=== PATIENT | female | born 1965 | race Caucasian/White ===

== ENCOUNTER 2021-01-30 14:11 | Outpatient (CLI) | payer MEDICARE, SELFPAY ==
--- NOTE | ~2021-01-30 | MM_ITS ---
EXAMINATION: MM screening sharon BI w maxime HISTORY: Screening TECHNIQUE: Craniocaudal and mediolateral oblique 3-D tomosynthesis images were obtained and synthetic 2-D images were generated. CAD analysis was submitted and interpreted. COMPARISON: No prior mammogram is available for comparison at this institution. BREAST PARENCHYMAL COMPOSITION: There are scattered areas of fibroglandular density. FINDINGS: There is no evidence of suspicious mass, calcification, or architectural distortion to sugg est malignancy in either breast. There has been no suspicious interval change. IMPRESSION: 1. No mammographic evidence of malignancy. 2. Recommend routine screening mammography in one year. BI-RADS Category 1: Negative Reviewed, dictated and finalized at location A.
== END 2021-01-30 14:12 | disposition home or self-care (01) ==
LOC: ANHIMG 14:18
PROVIDERS: PCP Family Medicine; Visit Provider Family Medicine
DX: Z12.31 Encounter for screening mammogram for malignant neoplasm of breast (principal)
CPT/HCPCS: 77063; 77067

== ENCOUNTER 2021-06-14 10:24 | Outpatient (CLI) | payer MEDICARE, SELFPAY ==
--- NOTE | ~2021-06-14 | MMUS_ITS ---
EXAMINATION: MM diagnostic sharon LT w maxime, US breast LT limited HISTORY: Palpable left breast abnormality TECHNIQUE: Additional 3-D tomosynthesis images of the left breast were performed and synthetic 2-D im ages were generated. CAD analysis was submitted and interpreted. High resolution Limited left breast ultrasound was performed. COMPARISON: 01/30/2021 BREAST PARENCHYMAL COMPOSITION: Breast composed of scattered areas of fibroglandular density. FINDINGS: MAMMOGRAPHIC FINDINGS: There are no suspicious masses, calcifications or architectural distortion in the left breast to sugg est malignancy. ULTRASOUND: Limited left breast ultrasound: Normal heterogeneous echotexture without focal solid or cystic mass. IMPRESSION: 1. No evidence for malignancy in the left breast. 2. Routine yearly screening mammogram and regular clinical breast examination are recommended. BI-RADS Category 1: Negative Reviewed, dictated and finalized at location A. IMPRESSION: 1. No evidence for malignancy in the left breast. 2. Routine yearly screening mammogram and regular clinical breast examination a re recommended. BI-RADS Category 1: Negative
--- NOTE | ~2021-06-14 | CT_ITS ---
EXAMINATION: CT lung screening DATE: 06/14/2021 10:16 INDICATION: Personal history of tobacco dependence, prior smoker with 30 pack year history TECHNIQUE: Computed tomography (CT) of the chest was performed without intravenous contrast. The dose -length product (DLP) was 126.89 mGy-cm. Automated exposure control and iterative reconstruction tech [place] were employed. COMPARISON: None FINDINGS: There is mild emphysema. Calcified pulmonary nodules are consistent with old granulomatous disease. No suspicious pulmonary nodules are identified. Fissural lymph nodes are noted. The lungs ar e free of acute opacities. There is no pleural effusion or pneumothorax. No pathologically enlarged t horacic lymph nodes are identified. The heart size is normal. There is moderate thoracic spondylosis. IMPRESSION: 1. Lung-RADS category 1: Negative. Continue annual screening with noncontrast low-dose chest CT in 12 months. Reviewed, dictated and finalized at location A. IMPRESSION: 1. Lung-RADS category 1: Negative. Continue annual screening with noncontrast l ow-dose chest CT in 12 months.
== END 2021-06-14 10:25 | disposition home or self-care (01) ==
LOC: ANHIMG 10:24
PROVIDERS: PCP Family Medicine; Visit Provider Family Medicine
DX: Z12.2 Encounter for screening for malignant neoplasm of respiratory organs (principal); Z87.891 Personal history of nicotine dependence; N64.4 Mastodynia
CPT/HCPCS: 71271; 76642; 77061; 77065; G0279

== ENCOUNTER 2021-08-15 15:50 | Outpatient (CLI) | payer MEDICARE, SELFPAY ==
--- NOTE | ~2021-08-15 | US_ITS ---
EXAMINATION: US thyroid DATE: 08/15/2021 16:20 INDICATION: Nontoxic thyroid nodule. TECHNIQUE: Multiple ultrasound images of the thyroid were obtained. COMPARISON: Ultrasound 03/20/2017 FINDINGS: The right thyroid lobe measures 4.8 x 1.8 x 1.6 cm. The left thyroid lobe measures 4.3 x 1.5 x 1.6 c m. In the right thyroid lobe, there is an 11 mm solid, hypoechoic, [id number] nodule with ill-d efined margin without echogenic foci (TI-RADS TR4). The thyroid demonstrates chronic heterogeneous ec hogenicity and increased vascularity, consistent with thyroiditis. IMPRESSION: 1. Chronic thyroiditis. 2. Stable thyroid nodule. 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 Reviewed, dictated and finalized at location A. CH SUPERVISOR IMPRESSION: 1. Chronic thyroiditis. 2. Stable thyroid nodule. Biopsy on 04/03/2017 was consistent with granulomatous (subacute) versus Noemi thyroiditis.
== END 2021-08-15 15:51 | disposition home or self-care (01) ==
LOC: ANHIMG 15:54
PROVIDERS: PCP Family Medicine; Visit Provider Internal Medicine Endocrinology, Diabetes & Metabolism
DX: E04.1 Nontoxic single thyroid nodule (principal); E06.5 Other chronic thyroiditis
CPT/HCPCS: 76536

== ENCOUNTER 2022-12-17 14:11 | Outpatient (CLI) | payer MEDICARE, SELFPAY ==
--- NOTE | ~2022-12-17 | CT_ITS ---
CT Scan of the Chest without Contrast: Clinical Indication: Lung cancer screening, personal history of nicotine dependence Technique: Contiguous sections were acquired throughout the chest without intravenous contrast. Dose reduction technique was used on this scan by utilizing automated exposure control and iterative recon struction technique. The dose-length product (DLP) was 166.64 mGy-cm. COMPARISON: 06/14/2021 Findings: There is no evidence of any significant mediastinal, hilar or axillary lymphadenopathy. The mediastin al soft tissues appear normal. There is no evidence of pleural or pericardial effusion. Stable 3 mm nodule along the left fissure noted (axial image 61). No other pulmonary nodule seen. Images through the upper abdomen reveal no abnormalities. Impression: Lung-RADS 2: Benign appearance. 12 month follow-up screening CT advised. Reviewed, dictated and finalized at [facility]. Impression: Lung-RADS 2: Benign appearance. 12 month follow-up screening CT advised.
--- NOTE | 2022-12-18 13:27 | WPDPFTINT ---
PFT Procedure Performed PFT Procedure Performed Spirometry with Pre/Post Bronchodilator Plethysmography (Lung Vol) Diffusing Cap (DLCO) Flow Vol Loop PFT Interpretation This is a pulmonary function test with pre and post-bronchodilator spirometry, plethysmography and diffusing capacity. The test was performed and results interpreted in accordance with the 2019 and 2005 ATS/ERS Task Force guidelines respectively using the Global Lung Function Initiative-2012 reference equations. Patient demonstrated good effort and cooperation. Reproducibility criteria were met. The quality of the pre bronchodilator spirometry maneuver was Grade A and post bronchodilator spirometry maneuver was Grade A. Findings: Spirometry: The contour the inspiratory and expiratory flow tracing are normal. The pre bronchodilator FVC is 3.77 L, 107% predicted. The pre bronchodilator FEV1 is 2.74 L, 99% predicted. The pre bronchodilator FEV1: FVC ratio 73%. The post bronchodilator FVC is 3.87 L, representing a 3% increase. The post bronchodilator FEV1 is 2.89 L, representing a 6% increase. The post bronchodilator FEV1: FVC ratio 75%. Plethysmography: The total lung capacity is 5.44 L, 99% predicted. The functional residual capacity is 2.33 L, 75% predicted. The residual volume is 1.66 L, 79% predicted. Diffusion capacity: The diffusing capacity unadjusted for hemoglobin and carboxyhemoglobin is 19.6, 85% predicted. The diffusing capacity adjusted for alveolar volume is 3.71, 86% predicted. Impression: The spirometry is normal without evidence of an obstructive abnormality. There is no significant improvement after inhaling a single dose of albuterol. The lung volumes are normal. The diffusing capacity is normal. There are no prior studies for comparison
== END 2022-12-17 14:12 | disposition home or self-care (01) ==
LOC: ANHPFT 14:12
PROVIDERS: PCP Family Medicine; Visit Provider Family Medicine
DX: Z12.2 Encounter for screening for malignant neoplasm of respiratory organs (principal); Z87.891 Personal history of nicotine dependence
CPT/HCPCS: 71271; 94060; 94726; 94729

== ENCOUNTER → 2023-05-11 11:48 | Outpatient (CLI) | payer MEDICARE, SELFPAY ==
--- NOTE | ~2023-05-11 | XR_ITS ---
EXAMINATION: XR hip RT 2V w AP pelvis DATE: 05/11/2023 12:05 INDICATION: Nontraumatic right hip pain and right-sided sciatica TECHNIQUE: Anteroposterior view of the pelvis and anteroposterior and frog-leg lateral views of the r ight hip were obtained. COMPARISON: None. FINDINGS: Alignment is normal. No fracture or suspected avascular necrosis. Mild osteoarthritis at the bilatera l hip and left sacroiliac joints. Soft tissues are unremarkable. IMPRESSION: 1. 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 Reviewed, dictated and finalized at location A.
--- NOTE | ~2023-05-11 | XR_ITS ---
EXAMINATION: XR lumbar spine 2-3V DATE: 05/11/2023 12:05 INDICATION: Low back pain TECHNIQUE: Anteroposterior and lateral views of the lumbar spine, and cone-down lateral view of the l umbosacral junction were obtained. COMPARISON: None. FINDINGS: Bone alignment is normal. There is no fracture. There is moderate loss of intervertebral di sc space height at L5-S1. There is moderate facet joint osteoarthritis of the mid and lower lumbar sp ine. The vertebral body heights are maintained. Small degenerative osteophytes project from the anter ior endplates of multiple vertebral bodies. Calcified atherosclerosis is noted. IMPRESSION: 1. Mild/moderate lumbar spondylosis without acute findings. Reviewed, dictated and finalized at location B.
== END ==
PROVIDERS: PCP Physician Assistant; Visit Provider Physician Assistant
DX: M47.896 Other spondylosis, lumbar region (principal); M16.0 Bilateral primary osteoarthritis of hip; M53.3 Sacrococcygeal disorders, not elsewhere classified
CPT/HCPCS: 72100; 73502

== ENCOUNTER 2023-06-02 17:03 | Outpatient (CLI) | payer MEDICARE, SELFPAY ==
--- NOTE | ~2023-06-02 | MR_ITS ---
EXAMINATION: MR lumbar spine wo con DATE: 06/02/2023 17:38 INDICATION: Lumbar radiculopathy TECHNIQUE: Magnetic resonance imaging (MRI) of the lumbar spine was performed without intravenous con trast. Sequences included sagittal T2-weighted FSE, sagittal T2-weighted FS FSE, sagittal T1-weighted FSE, and axial T2-weighted FSE. COMPARISON: Chest CT dated 12/17/2022 and lumbar spine radiographs dated 05/11/2023 FINDINGS: Transitional thoracolumbar and lumbosacral segments. For purposes of this dictation the thoracolumbar segment will be designated L1 with bilateral hypoplastic riblets. There are 12 more cephalad paired rib-bearing thoracic segments evident on prior CT. There are 4 more caudal nonrib-bearing lumbar segm ents L2-L5. S1 is sacralized bilaterally but with increased thickness of the S1-S2 disc space. Bone a lignment is normal. Vertebral body heights are normal. Normal marrow signal. Disc heights are normal . There is an annular fissure and heterogeneous increased signal in the anterior L5-S1 disc. The conu s medullaris terminates at L1-L2. There is normal signal in the caudal spinal cord. Paravertebral sof t tissues are unremarkable. The following disc levels are specifically discussed: T12-L1: The disc does not extend beyond the endplate margin. There is mild left and moderate right fa cet joint osteoarthritis. There is minimal right neural foraminal stenosis. There is no central canal stenosis. L1-L2: The disc does not extend beyond the endplate margin. There is mild bilateral facet joint osteo arthritis. There is no neural foraminal stenosis. There is no central canal stenosis. L2-L3: Mild bilateral foraminal zone disc protrusions. There is mild right and mild to moderate left facet joint osteoarthritis. There is no neural foraminal stenosis. There is no central canal stenosis . L3-L4: The disc does not extend beyond the endplate margin. There is hypertrophy of the ligamentum fl avum. There is moderate bilateral facet joint osteoarthritis. There is minimal bilateral neural fora silvia stenosis. There is minimal central canal stenosis. L4-L5: Disc is mildly bulging. There is hypertrophy of the ligamentum flavum. There is moderate bilat eral facet joint osteoarthritis. There is mild bilateral neural foraminal stenosis. There is mild dinah tral canal stenosis. L5-S1: Disc is mildly bulging with left foraminal zone predominance and superimposed central annular fissure. There is hypertrophy of the ligamentum flavum. There is moderate bilateral facet joint oste oarthritis. There is mild bilateral neural foraminal stenosis. There is minimal central canal stenosi s. IMPRESSION: 1. Mild lumbar spondylosis. Reviewed, dictated and finalized at location A. IMPRESSION: 1. Mild lumbar spondylosis.
== END 2023-06-02 17:04 | disposition home or self-care (01) ==
PROVIDERS: PCP Family Medicine; Visit Provider Physician Assistant
DX: M47.26 Other spondylosis with radiculopathy, lumbar region (principal)
CPT/HCPCS: 72148

== ENCOUNTER 2023-07-03 07:39 | Outpatient (CLI) | payer MEDICARE, SELFPAY ==
--- NOTE | 2023-07-03 07:50 | ECHO_ITS ---
Patient Info Name: Berenice Choi Age: 58 years : 1965 Gender: Female Ht: 67 in Wt: 220 lbs BSA: 2.21 m2 HR: 77 bpm BP: 163 / 99 mmHg Technical Quality: Good Exam Date: 07/03/2023 8:02 AM Exam Location: [facility] Patient Status: Outpatient Admit Date: 07/03/2023 Staff Ordering Physician: Naina Jean-Baptiste MD [employer] Teacher: Ericka Harley RDCS Attending Provider: Naina Jean-Baptiste MD Referring Physician: Estiven GARCIA; Exam Type: CA echo doppler color flow Study Info Indications R07.89 - Other chest pain Complete two-dimensional, color flow and Doppler transthoracic echocardiogram is performed. Summary 1. Complete two-dimensional, color flow and Doppler transthoracic echocardiogram is performed. 2. Left ventricular chamber dimension is normal. 3. Left ventricular systolic function is normal, estimated at 60-65%. 4. The left ventricular diastolic function is grade I diastolic dysfunction. 5. E/e' 11 is mildly elevated. 6. No pulmonary hypertension, estimated pulmonary arterial systolic pressure is 22 mmHg. Left Ventricle E/e' 11 is mildly elevated. Left ventricular chamber dimension is normal. Left ventricular systolic function is normal, estimated at 60-65%. The left ventricular diastolic function is grade I diastolic dysfunction. Right Ventricle Right ventricular chamber dimension is normal. Right ventricular systolic function is normal. Left Atria Left atrial chamber dimension is normal. Right Atria Right atrial chamber dimension is normal. Aortic Valve The aortic valve is trileaflet. There is no aortic valve stenosis. There is no aortic valve regurgitation. Pulmonic Valve There is no pulmonic regurgitation. Mitral Valve There is no mitral valve stenosis. There is no mitral valve regurgitation. Tricuspid Valve There is no tricuspid valve regurgitation. No pulmonary hypertension, estimated pulmonary arterial systolic pressure is 22 mmHg. Pericardium/Pleural There is no pericardial effusion. Inferior Vena Cava Normal inferior vena cava with >50% collapse upon inspiration consistent with normal right atrial pressure, 5 mmHg. Aorta The aortic root size at the sinus of Valsalva is normal. Left Ventricular Outflow Tract Name Value Normal LVOT 2D LVOT Diameter 2.0 cm LVOT Doppler LVOT Peak Gradient 6 mmHg LVOT Mean Gradient 3 mmHg LVOT VTI 24 cm LVOT VTI/AV VTI Ratio 1.0 LVOT Stroke Volume 76 ml LVOT CO 4.8 l/min LVOT CI 2.2 l/min/m2 Pulmonic Valve Name Value Normal RVOT Doppler RVOT Peak Gradient 3 mmHg PV Doppler PV Peak Gradient 4 mmHg Mitral Valve
--- NOTE | 2023-07-03 07:51 | EST_ITS ---
Patient Info Name: Berenice Choi Age: 58 years : 1965 Gender: Female Ht: 67 in Wt: 220 lbs BSA: 2.21 m2 Exam Date: 07/03/2023 8:55 AM Exam Location: [facility] Patient Status: Outpatient Admit Date: 07/03/2023 Staff Ordering Physician: Naina Jean-Baptiste MD Attending Provider: Naina Jean-Baptiste MD Exercise Technologist: Melisa Billings CT Exercise Physician: Milo Flynn DO Exam Type: CA stress test treadmill Study Info Indications R07.89 - Other chest pain A treadmill exercise stress test was performed. Summary 1. 1. Negative Juan exercise stress test for ischemic ST changes by ECG criteria. 2. 2. Reduced functional capacity, achieving 7 METs of workload. 3. 3. Baseline hypertension. 4. 4. Appropriate HR response to exercise. 5. 5. Appropriate HR recovery at 1 minute post exercise. 6. 6. No imaging with stress testing. 7. 7. Patient informed of the above results. Protocol: Juan Stress ECG Details Stage: REST Duration (min): 1 min : 17 sec Speed (mph): 0.0 Grade (%): 0 HR (bpm): 64 SBP (mmHg): 143 DBP (mmHg): 87 METS: --- Stage: REST Duration (min): 5 min : 32 sec Speed (mph): 0.0 Grade (%): 0 HR (bpm): 61 SBP (mmHg): 143 DBP (mmHg): 87 METS: --- Stage: STAGE 1 Duration (min): 1 min : 0 sec Speed (mph): 1.7 Grade (%): 10 HR (bpm): 102 SBP (mmHg): 143 DBP (mmHg): 87 METS: --- Stage: STAGE 1 Duration (min): 2 min : 0 sec Speed (mph): 1.7 Grade (%): 10 HR (bpm): 116 SBP (mmHg): 143 DBP (mmHg): 87 METS: --- Stage: STAGE 1 Duration (min): 3 min : 0 sec Speed (mph): 1.7 Grade (%): 10 HR (bpm): 122 SBP (mmHg): 188 DBP (mmHg): 82 METS: --- Stage: STAGE 2 Duration (min): 1 min : 0 sec Speed (mph): 2.5 Grade (%): 12 HR (bpm): 134 SBP (mmHg): 188 DBP (mmHg): 82 METS: --- Stage: STAGE 2 Duration (min): 2 min : 0 sec Speed (mph): 2.5 Grade (%): 12 HR (bpm): 141 SBP (mmHg): 188 DBP (mmHg): 82 METS: --- Stage: STAGE 2 Duration (min): 2 min : 0 sec Speed (mph): 2.5 Grade (%): 12 HR (bpm): 141 SBP (mmHg): 188 DBP (mmHg): 82 METS: --- Stage: RECOVERY Duration (min): 0 min : 59 sec Speed (mph): 0.0 Grade (%): 0 HR (bpm): 109 SBP (mmHg): 206 DBP (mmHg): 83 METS: --- Stage: RECOVERY Duration (min): 1 min : 59 sec Speed (mph): 0.0 Grade (%): 0 HR (bpm): 84 SBP (mmHg): 206 DBP (mmHg): 83 METS: --- Stage: RECOVERY Duration (min): 2 min : 59 sec Speed (mph): 0.0 Grade (%): 0 HR (bpm): 82 SBP (mmHg): 206 DBP (mmHg): 83 METS: --- Stage: RECOVERY Duration (min): 3 min : 11 sec Speed (mph): 0.0 Grade (%): 0 HR (bpm): 81 SBP (mmHg): 181 DBP (mmHg): 80 METS: --- Rest HR: 61 bpm Peak HR: 141 bpm Rest Sys BP: 143 mmHg Peak Sys BP: 206 mmHg Max Pred HR: 160 bpm % Max Pred HR: 88 % Target HR: 136 bpm Max RPP: 29,046 bpm*mmHg Holcomb Score: -5 Term
== END 2023-07-03 07:40 | disposition home or self-care (01) ==
PROVIDERS: PCP Family Medicine; Visit Provider Family Medicine
DX: R07.89 Other chest pain (principal); R06.02 Shortness of breath; E78.2 Mixed hyperlipidemia; Z87.891 Personal history of nicotine dependence; E05.20 Thyrotoxicosis with toxic multinodular goiter without thyrotoxic crisis or storm; I10 Essential (primary) hypertension
CPT/HCPCS: 93017; 93306

== ENCOUNTER → 2023-08-17 11:07 | Outpatient (CLI) | payer MEDICARE, SELFPAY ==
--- NOTE | ~2023-08-17 | XR_ITS ---
EXAMINATION: XR chest 2V 08/17/2023 11:14 INDICATION: Shortness of breath and wheezing PROCEDURE: 2 view chest COMPARISON: No prior studies for comparison. FINDINGS: The lungs are clear. The cardiomediastinal silhouette is within normal limits. There are no pleural effusions. There is no pneumothorax suspected. IMPRESSION: 1: NO ACUTE CARDIOPULMONARY DISEASE. Reviewed, dictated and finalized at location B. R [employer]
== END ==
PROVIDERS: PCP Family Medicine; Visit Provider Emergency Medicine
DX: R06.02 Shortness of breath (principal); R06.2 Wheezing
CPT/HCPCS: 71046

== ENCOUNTER 2024-02-16 10:51 | Outpatient (CLI) | payer MEDICARE, SELFPAY | END 2024-02-16 10:52 | disposition home or self-care (01) | LOC: ANHAUDIO 10:51 | PROVIDERS: PCP Family Medicine; Visit Provider Family Medicine | DX: H90.3 Sensorineural hearing loss, bilateral (principal) | CPT/HCPCS: 92557; 92567 ==

== ENCOUNTER 2024-11-01 10:42 | Outpatient (CLI) | payer MEDICARE, SELFPAY ==
--- NOTE | ~2024-11-01 | CT_ITS ---
CT Scan of the Chest without Contrast: Clinical Indication: Lung cancer screening, nicotine dependence Technique: Contiguous sections were acquired throughout the chest without intravenous contrast. Dose reduction technique was used on this scan by utilizing automated exposure control and iterative recon struction technique. The dose-length product (DLP) was 148.20 mGy-cm. COMPARISON: 12/17/2022 Findings: There is no evidence of any significant mediastinal, hilar or axillary lymphadenopathy. The mediastin al soft tissues appear normal. There is no evidence of pleural or pericardial effusion. Stable 3 mm nodule along the left fissure. No pulmonary nodules or infiltrates are noted. Images through the upper abdomen reveal no abnormalities. Stable degenerative changes in the thoracic spine. Impression: Lung RADS 2: Benign appearance. 12 month follow-up screening CT advised. Reviewed, dictated and finalized at [facility]. REL RENTAL CLERK Impression: Lung RADS 2: Benign appearance. 12 month follow-up screening CT advised.
--- OUTSIDE RECORDS SUMMARY | 2024-11-01 11:19 | XMS_ITS | Clinical Summary ---
Author Organization [facility] Address [address] [place] [address] Care Team Providers Care Attending Pathologist Name Role Phone Naina Jean-Baptiste MD Primary Care Provider + Allergies Active Allergy Reactions Criticality Noted Date Comments Omeprazole Headache Low 10/08/2017 Medications omega 4-lgo-fob-fish oil 300-1,000 mg capsule TAKE 1 CAPSULE TWICE DAILY. 8 Active lamoTRIgine (LaMICtal) 100 mg tablet 8 Active buPROPion SR (WELLBUTRIN SR) 200 mg 12 hr tablet 2 times daily. 8 Active cholecalciferol (VITAMIN D-3) 5,000 unit capsule Take 1 capsule (5,000 Units total) by mouth daily. [address] (CYMBALTA) 60 mg capsule 9 Active thyroid ([place] Thyroid) 90 mg tablet 90 mg daily Active liothyronine (CYTOMEL) 25 mcg tablet 2 Active cyclobenzaprine (FLEXERIL) 10 mg tablet Take 1 tablet (10 mg total) by mouth 3 (three) times a day as needed for muscle spasms 3 Active liothyronine (CYTOMEL) 5 mcg tablet 2 Active thyroid ([place] Thyroid) 30 mg tablet 3 Active dextromethorpha n-guaifenesin 60-1,200 mg tablet extended release 12 hr Take by mouth Ac tive ibuprofen 200 mg tab/cap Take 2 tablet/capsule (400 mg total) by mouth every 6 (six) hours as needed for pain, fever or headaches Active cefdinir (OMNICEF) 300 mg capsule 3 Active Active Problems Problem Noted Date Diagnosed Date Keratoconjunctivitis sicca d ue to decreased tear production, bilateral 06/09/2019 Assessment & Plan (09/07/2024 1:35 PM HOSPITAL CHIEF FINANCIAL OFFICER): Symptoms stable on lubricating drops prn. Assessment & Plan (09/02/2023 11:54 AM HOSPITAL CHIEF FINANCIAL OFFICER): Signs and symptoms are greatly improved. Using Ats daily prn. CPM. Assessment & Plan (08/27/2022 1:09 PM HOSPITAL CHIEF FINANCIAL OFFICER): Continue ATs prn. Assessment & Plan (08/21/2021 4:20 PM HOSPITAL CHIEF FINANCIAL OFFICER): Well controlled with OTC ATs. F/u annually. Assessment & Plan (06/13/2020 1:45 PM CDT): Well controlled with OTC lubricating drops. CPM. Call with any worsening symptoms. Assessment & Plan (06/09/2019 11:26 AM CDT): Hx of hashimotos and graves disease. Has dry mouth and other symptoms consistent with sjogrens. Corneal staining meets criterion for sjogrens. Schimers <5mm OD, >5mm OS. Discussed restasis vs punctal plugs. Pt elects restasis at present. Start restasis, 1gtt, OU bid. Start Lotemax SM bid until bottle runs out when starting restasis. Continue PF ATs PRN. RTC x 4 months for symptoms/ant seg check. Consider punctal plugs if no improvement. Eye pain, right 12/23/2018 Assessment & Plan (12/23/2018 10:12 AM CDT): Pt only notices in the spring, comes and goes. Likely deferred sinus pressure pain. Start Flonase or Nasocort. Call with any persistence. Keep f/u in April for DFE. Dry eyes 05/28/2018 Assessment & Plan (12/23/2018 10:12 AM CDT): ATs PRN Assessment & Plan (05/28/2018 11:41 AM CDT): ATs prn Nuclear sclerotic cataract of both eyes 05/28/20 18 Assessment & Plan (09/07/2024 1:35 PM HOSPITAL CHIEF FINANCIAL OFFICER): Mild. Update Srx. F/u annually. Assessment & Plan (09/02/2023 11:53 AM HOSPITAL CHIEF FINANCIAL OFFICER): Stable on exam today. Recommended better lighting for reading. F/u annually. Assessment & Plan (08/27/2022 1:09 PM HOSPITAL CHIEF FINANCIAL OFFICER): Stable. update SRx. F/u annually Assessment & Plan (08/21/2021 4:20 PM HOSPITAL CHIEF FINANCIAL OFFICER): Surgery not indicated. Update SRx. F/u annually. Assessment & Plan (06/13/2020 1:44 PM CDT): Not yet vis sig. Surgery not yet indicated. F/u in 1-2 years. Assessment & Plan (06/09/2019 11:25 AM CDT): Stable. Observe. Assessment & Plan (12/23/2018 10:12 AM CDT): New SRx. Recommended optical recheck seg ht of new glasses. Assessment & Plan (05/28/2018 11:41 AM CDT): Not vis sig. rec observation at present Fibromyalgia syndrome 04/05/2018 Assessment & Plan (04/05/2018 5:42 PM CDT): This would be a new diagnosis but her mother has fibromyalgia. Her exam is benign and symptoms are diffuse. Her bipolar disorder is overall well controlled and longstanding without these symptoms being associated previously. She gave me permission to contact her psychiatrist, Dr. Recinos, [facility] [phone]. If no contraindication, I will trial Lyrica with Berenice and f/u in 1 m. We could also consider substituting SNRI for lexapro in future. Groin pain, right 04/05/2018 Assessment & Plan (04/05/2018 5:44 PM CDT): Exam benign; dif dx includes OA, strain, bursitis, fibromyalgia, gait abnormality. CTM Leg length discrepancy 02/05/2018 Gastroesophageal reflux disease 10/08/2017 Anxiety 10/08/2017 Bipolar I disorder, most recent episode depresse d ([facility]) 10/08/2017 Hyperlipidemia 10/08/2017 Hypertension 10/08/2017 Hyperthyroidism 10/08/2017 Assessment & Plan (07/16/2018 3:56 PM CDT): Clinical thyroid symptoms slightly high, with brisk reflex relaxation. However, poor tolerance to antithyroid medication. Need to check her current status Assessment & Plan (05/03/2018 9:54 AM CDT): As above, Graves disease. We will see how she does with PTU and a more consistent regimen. Assessment & Plan (04/05/2018 5:42 PM CDT): Labs stable. Seeing Endocrine. Obesity with body mass index 30 or greater 10/08 Seasonal allergic rhinitis 10/08/2017 Menopausal symptom 10/08/2017 Graves disease 05/04/2017 Assessment & Plan (12/23/2018 10:13 AM CDT): No ophthalmic manifestations at present. Observe. Assessment & Plan (07/16/2018 11:10 AM CDT): Very high antibody levels. Some of her constitutional symptoms could be related to and chin/antibody immune reaction and may respond to anti inflammatory management Assessment & Plan (05/28/2018 11:42 AM CDT): No ophthalmic manifestations. Recommend continued care with PCP. Assessment & Plan (05/03/2018 9:53 AM CDT): Very symptomatic, but she may be having untoward side effects of methimazole so we can changed to PTU to see if this works better for her. We need to monitor both free T3 and free T4 levels until we reach a clinical balance Carpal tunnel syndrome 12/11/2016 Overview (02/20/2017): Right carpal tunnel syndrome Disorder of rotator cuff 06/12/2016 Overview (01/01/2017): Tear of right rotator cuff, unspecified tear extent Inflammation of rotator cuff tendon 06/12/2016 Overview (01/01/2017): Tendinitis of left rotator cuff [place] or callus 08/20/2014 Overview (01/01/2017): Corns and callus Resolved Problems Problem Noted Date Diagnosed Date Resolved Date Meibomian gland dysfunction (MGD) of both eyes 05/04/2017 05/28/2018 Encounters Date Type Department Care Team Description 09/07/2024 1:00 PM HOSPITAL CHIEF FINANCIAL OFFICER Office Visit [facility] [address] [place] [address] Lio Blount, OD Nuclear sclerotic cataract of both eyes (Primary Dx); Keratoconjunctivitis sicca due to decreased tear production, bilateral from Last 3 Months Surgical History Surgery Date Site/Laterality Comments VAGINAL HYSTERECTOMY Hysterectomy, vaginal HYSTERECTOMY Total Hysterectomy - [facility] 2004 (Added by TW Conv) SHOULDER SURGERY Shoulder Surgery Right - [facility] 2016 (Added by TW Conv) SHOULDER SURGERY Shoulder Surgery - (Added by TW Conv) HYSTERECTOMY Hysterectomy - endometrtiosis - no BSO (Added by TW Conv) ROTATOR CUFF REPAIR Rotator Cuff Repair - right (Added by TW Conv) CA BIOPSY THYROID PERCUTANEO US CORE NEEDLE Biopsy Thyroid Using Percutaneous Core Needle - U/S guided - 12 m nodule R lobe nodule - Noemi thyroiditis (Added by TW Conv) Medical History Medical History Date Comments Osteoarthritis Osteoarthritis Other specified disorders of eyelid Meibomian gland dysfunction (MGD) of both eyes - (Added by TW Conv) Gastro-esophageal reflux dis ease without esophagitis Acid reflux - (Added by TW C onv) Obesity Obesity (BMI 30- 39.9) - (Added by TW Conv) Female climacteric state Symptom atic menopausal or female climacteric states - (Added by TW Conv) Personal history of other di seases of the female genital tract History of endometriosis - ( Added by TW Conv) Dislocation of acromioclavicular joint Acromioclavicular separation - Left (Added by TW Conv) Injury of tendon of rotator cuff Rotator cuff injury - Right (Added by TW Conv) Personal history of other di seases of the digestive system History of hiatal hernia - ( Added by TW Conv) Personal history of other di seases of the respiratory system History of asthma - (Added b y TW Conv) History of recurrent pneumonia H istory of pneumonia - (Added by TW Conv) Personal history of other me ntal and behavioral disorders History of bipolar disorder - (Added by TW Conv) Fibromyalgia Family History Medical History Relation Name Comments Breast cancer Cousin Diabetes Father Family history of diabetes mellitus - (Added by TW Conv) Diabetes type II Father Type 2 Diab etes Mellitus - (Added by TW Conv) Hyperlipidemia Father High choleste rol - (Added by TW Conv) Hypertension Father Family history of hypertension - (Added by TW Conv)/Hypertension - (Added by TW Conv) Obesity Father Family history of obesity - (Added by TW Conv) Diabetes type II Maternal Grandfather Typ e 2 Diabetes Mellitus - Relation: Grandfather (Added by TW Conv) Diabetes type II Maternal Grandmother Sheba betes mellitus type 2; Heart disease Maternal Grandmother Cardio vascular disease; Heart attack Mother Family history of myocardial infarction - (Added by TW Conv) Heart disease Mother Cardiovascular disease; Hyperlipidemia Mother High choleste rol - (Added by TW Conv) Cancer Other 1 Family history of malignant neoplasm - Relation: Grandparent (Added by TW Conv) Diabetes Other 2 Family history of diabetes mellitus - Relation: Grandparent (Added by TW Conv) Hyperlipidemia Other 3 High choleste rol - Relation: Grandparent (Added by TW Conv) Heart attack Other 4 Family history of myocardial infarction - Relation: Grandparent (Added by TW Conv) Heart disease Other 5 Heart Disease - Relation: Grandmother (Added by TW Conv) Thyroid disease Other 6 Family histo ry of thyroid disease - MGM - hemithyroidectomy - ? disorder (Added by TW Conv) Glaucoma Neg Hx Macular degeneration Neg Hx Relation Name Status Comments Cousin Father Maternal Grandfather Maternal Grandmother Mother Other 1 Other 2 Other 3 Other 4 Other 5 Other 6 Social History Tobacco Use Types Packs/Day Years Used Date Smoking Tobacco: Former Cigarettes 1.3 20 1 988 - 2007 Smokeless Tobacco: Former Tobacco Cessation:Counseling Given: Not Answered Alcohol Use Standard Drinks/Week Comments No 0 (1 standard drink = 0.6 oz pur e alcohol) Comments No Sex and Gender Information Value Date Recorded Sex Assigned at Not on file Legal Sex Female 3:29 AM HOSPITAL CHIEF FINANCIAL OFFICER Gender Identity Not on file Sexual Orientation Not on file Obstetrics History Para Term AB IAB SAB Ectopic Multiple Livin g Live Births 0 0 0 0 0 0 0 0 0 0 0 Last Filed Vital Signs Vital Sign Reading Time Taken Comments Blood Pressure 138/96 08/11/2023 10:40 AM HOSPITAL CHIEF FINANCIAL OFFICER Pulse 102 08/11/2023 10:40 AM HOSPITAL CHIEF FINANCIAL OFFICER Temperature 37.2 ??C (99 ??F) 08/11/2023 10:40 AM HOSPITAL CHIEF FINANCIAL OFFICER Respiratory Rate 20 08/23/2019 6:06 PM HOSPITAL CHIEF FINANCIAL OFFICER Oxygen Saturation 97% 08/11/2023 10:40 AM HOSPITAL CHIEF FINANCIAL OFFICER Inhaled Oxygen Concentration - - Weight 101.2 kg (223 lb) 08/11/2023 10:40 AM HOSPITAL CHIEF FINANCIAL OFFICER verbal Height 170.2 cm (5' 7 ) 08/11/2023 10:40 AM HOSPITAL CHIEF FINANCIAL OFFICER verbal Body Mass Index 34.93 08/11/2023 10:40 AM HOSPITAL CHIEF FINANCIAL OFFICER Plan of Treatment Health Maintenance Due Date Last Done Comments Colon Cancer Screening-Colonoscopy 1963 Depression Screening 1963 Hepatitis C Screening 1963 DTaP/Tdap/Td Vaccine (1 - Tdap) 1974 Hepatitis B Screening 1981 Regular Well Visit/Exam 18-64 1981 Zoster Vaccine (1 of 2) 2013 Breast Cancer Screening-Mammogram 05/27/2023 05/27/2022, 08/31/2019, 07/31/2018, Additional history exists Covid-19 Vaccine ( season) 2024 12/20/2020, 11/29/2020 Influenza Vaccine (#1) 2024 Pneumococcal vaccine <65 Aged Out No longer eligible based on patient's age to complete this topic Procedures Procedure Name Priority Date/Time Associated Diagnosis Comments SCREENING MAMMOGRAM BILATERAL W STEPHANI Schedule Routine, Read Routine (OP Routine) 05/27/2022 9:57 AM CDT Screening mammogram, encounter for from Last 3 Months or Most Recently Relevant to Health Maintenance Results * Screening Mammogram Bilateral W Stephani (05/27/2022 9:57 AM CDT) Anatomical Region Laterality Modality Breast Bilateral Mammography 05/27/2022 1:48 PM CDT Impressions 05/27/2022 1:48 PM CDT There is no mammographic evidence of malignancy. A 1 year screening mammogram is recommended. BI-RADS: 1 - Negative. The patient has been or will be contacted. The patient will be entered into a reminder system with a target due date of 1 year for her next mammogram. Electronically signed by: Julito Quinonez M.D. Narrative 05/27/2022 1:48 PM CDT EXAMINATION: SCREENING MAMMOGRAM BILATERAL W STEPHANI ORDERING HEALTHCARE PROVIDER: SELF SCREENING MAMMOGRAM HISTORY: Routine screening mammography. COMPARISON: ??06/14/2021, 01/30/2021, 08/31/2019, 07/31/2018, 04/27/2017 TECHNIQUE: CC and MLO views of the bilateral breasts were obtained with digital technique using breast tomosynthesis with C view. Computer aided detection was utilized. FINDINGS: DENSITY: There are scattered fibroglandular elements in the bilateral breasts. BREASTS: There are no suspicious masses, suspicious calcifications, or other suspicious findings in either breast. There has been no suspicious interval change. us Self Screening Mammogram IMG MAMMO PROCEDURES Fi nal Result from Last 3 Months or Most Recently Relevant to Health [place] [address] [place] [id number] [employer] MEDICARE [employer] MEDICARE SOLUTIONS MEDICARE SOLUTIONS Care Teams Attending Pathologist Relationship Specialty Start Date End Date Naina Jean-Baptiste MD [facility] - General 01/22/21
--- OUTSIDE RECORDS SUMMARY | 2024-11-01 11:19 | XMS_ITS | Referral Summary ---
Author Organization [facility] Address [address] [place] [address] Care Team Providers Care Mathematical Engineering Technician Name Role Phone Naina Jean-Baptiste MD Primary Care Provider [phone] Source Comments [facility],non-owned Affiliates and Associated Physician Practices is amultiple site organization consisting of ambulatory clinics and hospital sitesin [place], [place], [place] and [place]. This disclosure is being madepursuant to the Care Everywhere program and may not contain all information available regarding this patient. Last updated 18.[facility] Encounters Date Type Department Care Team Description 09/07/2024 Travel 09/07/2024 8:45 AM CARRY IN WORKER Office Visit [facility] - Endocrinology [address] [place], [place] [address]Y [facility] [address] [place] [id number] Avril Kinsey MD Hypothyroidism, acquired (Primary Dx) from Last 3 Months Allergies No known active allergies Medications * Be aware that medications may not be up to date on this document. Alwaysverify current medications with the patient. Medication Sig Dispensed Refills Start Date End Date Status buPROPion SR 12hr (Wellbutrin SR) 200 MG tablet Active DULoxetine (Cymbalta) 60 MG capsule Active lamoTRIgine (LaMICtal) 100 MG tablet Active liothyronine (Cytomel) 25 MCG tablet 25mcg 3am, 11am 05/20/2023 Active liothyronine 5 MCG capsule 5mcg 4pm and 11pm 05/12/2022 Active [place]-3 Fatty Acids (FISH OIL PO) Active Magnesium Carbonate, Antacid, (MAGNESIUM CARBONATE PO) Active Cyanocobalamin (VITAMIN B-12 PO) Active VITAMIN D PO Active LORazepam (Ativan) 0.5 MG tablet Take 1 (one) tablet by mouth every 8 hours as needed for Anxiety Active propranolol (Inderal) 20 MG tablet Take 1 (one) tablet by mouth every 8 hours Active Active Problems Problem Noted Date Diagnosed Date Hypothyroidism, acquired 09/07/2024 Vitamin D deficiency 09/07/2024 Groin discomfort, right 07/13/2023 07/21/20 Degenerative disc disease, lumbar 05/20/2023 07/21/2023 Lumbar and sacral osteoarthritis 05/20/2023 07/21/2023 Sciatic leg pain 07/20/2021 07/21/2023 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 07/21/2023 Graves disease 10/20/2009 07/21/2023 Social History Tobacco Use Types Packs/Day Years Used Date Smoking Tobacco: Former Cigarettes Q uit: 2008 Smokeless Tobacco: Never Alcohol Use Standard Drinks/Week Comments Never 0 (1 standard drink = 0.6 oz pur e alcohol) Sex and Gender Information Value Date Recorded Sex Assigned at Female 05/26/2023 1:49 PM CDT Gender Identity Female 05/26/2023 1:49 PM CDT Sexual Orientation Not on file Last Filed Vital Signs Vital Sign Reading Time Taken Comments Blood Pressure 130/64 09/07/2024 8:58 AM CARRY IN WORKER Pulse 74 09/07/2024 8:58 AM CARRY IN WORKER Temperature - - Respiratory Rate - - Oxygen Saturation 98% 09/07/2024 8:58 AM CARRY IN WORKER Inhaled Oxygen Concentration - - Weight 102.2 kg (225 lb 3.2 oz) 09/07/2024 8:58 AM CARRY IN WORKER Height 170.2 cm (5' 7 ) 09/07/2024 8:58 AM CARRY IN WORKER Body Mass Index 35.27 09/07/2024 8:58 AM CARRY IN WORKER Plan of Treatment Not on file Care Teams Mathematical Engineering Technician Relationship Specialty Start Date End Date Naina Jean-Baptiste MD [address] [place] [address] PCP - General Family Medicine 05/26/23
--- OUTSIDE RECORDS SUMMARY | 2024-11-01 11:19 | XMS_ITS | Patient Health Summary ---
Author Organization [facility] Address [address] [place] [address] Care Team Providers Care Barrow Worker Helper Name Role Phone Naina Jean-Baptiste MD Primary Care Provider [phone] Note from [facility],non-owned Affiliates and Associated Physician Practices is amultiple site organization consisting of ambulatory clinics and hospital sitesin [place], [place], [place] and [place]. This disclosure is being madepursuant to the Care Everywhere program and may not contain all information available regarding this patient. Last updated 18.[facility] Allergies No known active allergies Medications * Be aware that medications may not be up to date on this document. Alwaysverify current medications with the patient. * buPROPion SR 12hr (Wellbutrin SR) 200 MG tablet * DULoxetine (Cymbalta) 60 MG capsule * lamoTRIgine (LaMICtal) 100 MG tablet * liothyronine (Cytomel) 25 MCG tablet(Started 05/20/2023) 25mcg 3am, 11am * liothyronine 5 MCG capsule(Started 05/12/2022) 5mcg 4pm and 11pm * [place]-3 Fatty Acids (FISH OIL PO) * Magnesium Carbonate, Antacid, (MAGNESIUM CARBONATE PO) * Cyanocobalamin (VITAMIN B-12 PO) * VITAMIN D PO * LORazepam (Ativan) 0.5 MG tablet Take 1 (one) tablet by mouth every 8 hours as needed for Anxiety * propranolol (Inderal) 20 MG tablet Take 1 (one) tablet by mouth every 8 hours Active Problems Problem Noted Date Diagnosed Date Hypothyroidism, acquired 09/07/2024 Vitamin D deficiency 09/07/2024 Groin discomfort, right 07/13/2023 07/21/20 Degenerative disc disease, lumbar 05/20/2023 07/21/2023 Lumbar and sacral osteoarthritis 05/20/2023 07/21/2023 Sciatic leg pain 07/20/2021 07/21/2023 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 07/21/2023 Graves disease 10/20/2009 07/21/2023 Social History Tobacco Use Types Packs/Day Years Used Date Smoking Tobacco: Former Cigarettes Q uit: 2009 Smokeless Tobacco: Never Alcohol Use Standard Drinks/Week Comments Never 0 (1 standard drink = 0.6 oz pur e alcohol) Sex and Gender Information Value Date Recorded Sex Assigned at Female 05/26/2023 1:49 PM CDT Gender Identity Female 05/26/2023 1:49 PM CDT Sexual Orientation Not on file Last Filed Vital Signs Vital Sign Reading Time Taken Comments Blood Pressure 130/64 09/07/2024 8:58 AM FIELD CONTACT TECHNICIAN Pulse 74 09/07/2024 8:58 AM FIELD CONTACT TECHNICIAN Temperature - - Respiratory Rate - - Oxygen Saturation 98% 09/07/2024 8:58 AM FIELD CONTACT TECHNICIAN Inhaled Oxygen Concentration - - Weight 102.2 kg (225 lb 3.2 oz) 09/07/2024 8:58 AM FIELD CONTACT TECHNICIAN Height 170.2 cm (5' 7 ) 09/07/2024 8:58 AM FIELD CONTACT TECHNICIAN Body Mass Index 35.27 09/07/2024 8:58 AM FIELD CONTACT TECHNICIAN Care Teams Barrow Worker Helper Relationship Specialty Start Date End Date Naina Jean-Baptiste MD [address] [place] [address] PCP - General Family Medicine 05/26/23
--- OUTSIDE RECORDS SUMMARY | 2024-11-01 11:19 | XMS_ITS | Referral Summary ---
Author Organization [facility] Address [address] [place] [address] Care Team Providers Care Director Of Strategic Marketing Name Role Phone Naina Jean-Baptiste MD Primary Care Provider + Encounters Date Type Department Care Team Description 09/07/2024 1:00 PM DIALS INSPECTOR Office Visit [facility] Ophthalmology [address] [place] [address] Lio Blount, [place] Nuclear sclerotic cataract of both eyes (Primary Dx); Keratoconjunctivitis sicca due to decreased tear production, bilateral from Last 3 Months Allergies Active Allergy Reactions Criticality Noted Date Comments Omeprazole Headache Low 10/08/2017 Medications omega 9-vrc-qdb-fish oil 300-1,000 mg capsule TAKE 1 CAPSULE TWICE DAILY. 8 Active lamoTRIgine (LaMICtal) 100 mg tablet 8 Active buPROPion SR (WELLBUTRIN SR) 200 mg 12 hr tablet 2 times daily. 8 Active cholecalciferol (VITAMIN D-3) 5,000 unit capsule Take 1 capsule (5,000 Units total) by mouth daily. [address] (CYMBALTA) 60 mg capsule 9 Active thyroid ([place] Thyroid) 90 mg tablet 90 mg daily Active liothyronine (CYTOMEL) 25 mcg tablet 2 Active cyclobenzaprine (FLEXERIL) 10 mg tablet Take 1 tablet (10 mg total) by mouth 3 (three) times a day as needed for muscle spasms 3 Active liothyronine (CYTOMEL) 5 mcg tablet 2 Active thyroid ([place] Thyroid) 30 mg tablet 3 Active dextromethorpha [...] 06/09/2019 Assessment & Plan (09/07/2024 1:35 PM DIALS INSPECTOR): Symptoms stable on lubricating drops prn. Assessment & Plan (09/02/2023 11:54 AM DIALS INSPECTOR): Signs and symptoms are greatly improved. Using Ats daily prn. CPM. Assessment & Plan (08/27/2022 1:09 PM DIALS INSPECTOR): Continue ATs prn. Assessment & Plan (08/21/2021 4:20 PM DIALS INSPECTOR): Well controlled with OTC ATs. F/u annually. [...] 18 Assessment & Plan (09/07/2024 1:35 PM DIALS INSPECTOR): Mild. Update Srx. F/u annually. Assessment & Plan (09/02/2023 11:53 AM DIALS INSPECTOR): Stable on exam today. Recommended better lighting for reading. F/u annually. Assessment & Plan (08/27/2022 1:09 PM DIALS INSPECTOR): Stable. update SRx. F/u annually Assessment & Plan (08/21/2021 4:20 PM DIALS INSPECTOR): Surgery not indicated. Update SRx. F/u annually. [...] permission to contact her psychiatrist, Dr. Recinos, [facility] [phone]. If no contraindication, I will trial Lyrica [...] I disorder, most recent episode depresse d ([facility]) 10/08/2017 Hyperlipidemia 10/08/2017 Hypertension 10/08/2017 Hyperthyroidism 10/08/2017 [...] Overview (01/01/2017): Tendinitis of left rotator cuff [place] or callus 08/20/2014 Overview (01/01/2017): Corns and callus Resolved Problems Problem Noted Date Diagnosed Date Resolved Date Meibomian gland dysfunction (MGD) of both eyes 05/04/2017 05/28/2018 Social History Tobacco Use Types Packs/Day Years Used Date Smoking Tobacco: Former Cigarettes 1.3 20 1 988 - 2007 Smokeless Tobacco: Former Tobacco Cessation:Counseling Given: Not Answered Alcohol Use Standard Drinks/Week Comments No 0 (1 standard drink = 0.6 oz pur e alcohol) Comments No Sex and Gender Information Value Date Recorded Sex Assigned at Not on file Legal Sex Female 3:29 AM DIALS INSPECTOR Gender Identity Not on file Sexual Orientation Not on file Last Filed Vital Signs Vital Sign Reading Time Taken Comments Blood Pressure 138/96 08/11/2023 10:40 AM DIALS INSPECTOR Pulse 102 08/11/2023 10:40 AM DIALS INSPECTOR Temperature 37.2 ??C (99 ??F) 08/11/2023 10:40 AM DIALS INSPECTOR Respiratory Rate 20 08/23/2019 6:06 PM DIALS INSPECTOR Oxygen Saturation 97% 08/11/2023 10:40 AM DIALS INSPECTOR Inhaled Oxygen Concentration - - Weight 101.2 kg (223 lb) 08/11/2023 10:40 AM DIALS INSPECTOR verbal Height 170.2 cm (5' 7 ) 08/11/2023 10:40 AM DIALS INSPECTOR verbal Body Mass Index 34.93 08/11/2023 10:40 AM DIALS INSPECTOR Plan of Treatment Not on file Procedures Procedure Name Priority Date/Time Associated Diagnosis [...] Most Recently Relevant to Health Maintenance Insurance [facility] MEDICARE SOLUTIONS MEDICARE SOLUTIONS MEDICARE SOLUTIONS Care Teams Director Of Strategic Marketing Relationship Specialty Start Date End Date Naina Jean-Baptiste MD PCP - General 01/22/21
--- OUTSIDE RECORDS SUMMARY | 2024-11-01 11:19 | XMS_ITS | Clinical Summary ---
Author Organization [facility] Address [address] [place] [address] Care Team Providers Care Career Placement Services Counselor Name Role Phone Naina Jean-Baptiste MD Primary Care Provider [phone] Source Comments [facility],non-owned Affiliates and Associated Physician Practices is amultiple site organization consisting of ambulatory clinics and hospital sitesin [place], [place], [place] and [place]. This disclosure is being madepursuant to the Care Everywhere program and may not contain all information available regarding this patient. Last updated 18.[facility] Allergies No known active allergies Medications * [...] capsule 5mcg 4pm and 11pm 05/12/2022 Active [place]-3 Fatty Acids (FISH OIL PO) Active Magnesium [...] disease 01/19/2020 07/21/2023 Graves disease 10/20/2009 07/21/2023 Encounters Date Type Department Care Team Description 09/07/2024 8:45 AM STILL PHOTOGRAPHER Office Visit [facility] - Endocrinology [address] [place] [address] Avril Kinsey MD Hypothyroidism, acquired (Primary Dx) 09/07/2024 Travel from Last 3 Months Family History Medical History Relation Name Comments None Known Brother Diabetes - Type 2 Father Thyroid Disease Maternal Grandmother thyr oidectomy CAD (Coronary Artery Disease) Mother Thyroid Disease Mother None Known Sister Relation Name Status Comments Brother Alive Father Alive Maternal Grandfather Maternal Grandmother Mother Alive Paternal Grandfather Paternal Grandmother Sister Alive Social History Tobacco Use Types Packs/Day Years [...] Comments Blood Pressure 130/64 09/07/2024 8:58 AM STILL PHOTOGRAPHER Pulse 74 09/07/2024 8:58 AM STILL PHOTOGRAPHER Temperature - - Respiratory Rate - - Oxygen Saturation 98% 09/07/2024 8:58 AM STILL PHOTOGRAPHER Inhaled Oxygen Concentration - - Weight 102.2 kg (225 lb 3.2 oz) 09/07/2024 8:58 AM STILL PHOTOGRAPHER Height 170.2 cm (5' 7 ) 09/07/2024 8:58 AM STILL PHOTOGRAPHER Body Mass Index 35.27 09/07/2024 8:58 AM STILL PHOTOGRAPHER Plan of Treatment Health Maintenance Due Date Last Done Comments COLOGUARD (AGES 45-75) - COL ON CA SCREENING 1963 COLON MONITORING 1963 COLONOSCOPY - COLON CA SCREENING 1963 CT COLONOGRAPHY - COLON CA SCREENING 1963 Colorectal Cancer Screening 1963 FIT - COLON CA SCREENING 1963 FLEX SIG - COLON CA SCREENING 1963 LIPID TESTING 1963 MAMMOGRAM 1963 PAP SMEAR 1963 HIV SCREENING 1978 HEPATITIS C SCREENING 01/30/1981 DTAP/TDAP/TD VACCINES (1 - Tdap) 1982 PNEUMOCOCCAL VACCINE 50+ (1 of 1 - PCV) 2013 ZOSTER VACCINE (1 of 2) 2013 COVID-19 VACCINE (1 - 2023-2 5 season) 2024 INFLUENZA VACCINE (#1) 2024 SCREENING FOR DIABETES 09/07/2024 DEPRESSION SCREENING 09/28/2024 Respiratory Syncytial Virus (RSV) Vaccine Pt: or over 60 yrs (1 - 1-dose 75+ series) 2038 HEPATITIS B VACCINE Aged Out No longe r eligible based on patient's age to complete this topic HIB VACCINE Aged Out No longer eligi ble based on patient's age to complete this topic HPV VACCINE Aged Out No longer eligi ble based on patient's age to complete this topic MENINGOCOCCAL (Group B) VACCINE Aged Out No longer eligible based on patient's age to complete this topic MENINGOCOCCAL VACCINE Aged Out No yue yancy eligible based on patient's age to complete this topic PNEUMOCOCCAL VACCINE Aged Out No long er eligible based on patient's age to complete this topic Care Teams Career Placement Services Counselor Relationship Specialty Start Date End Date Naina Jean-Baptiste MD [address] [place] [address] PCP - General Family Medicine 05/26/23
== END 2024-11-01 10:43 | disposition home or self-care (01) ==
PROVIDERS: PCP Family Medicine; Visit Provider Family Medicine
DX: Z12.2 Encounter for screening for malignant neoplasm of respiratory organs (principal); Z87.891 Personal history of nicotine dependence
CPT/HCPCS: 71271

== ENCOUNTER 2025-01-20 00:32 | Day surgery (SDC) | payer MEDICARE, SELFPAY ==
[2024-12-07 12:11] VITALS: BMI 34.8
[2025-01-09 14:35] VITALS: BMI 34.9
--- OUTSIDE RECORDS SUMMARY | 2025-01-20 00:35 | XMS_ITS | Clinical Summary ---
Author Organization [facility] Address [address] [place] [address] Care Team Providers Care Jewelsmith Name Role Phone Naina Jean-Baptiste MD Primary Care Provider [phone] Source Comments [facility],non-owned Affiliates and Associated Physician Practices is amultiple site organization consisting of ambulatory clinics and hospital sitesin [place], [place], [place] and [place]. This disclosure is being madepursuant to the Care Everywhere program and may not contain all information available regarding this patient. Last updated 18.[facility] Allergies No known active allergies Medications * Be aware that medications may not be up to date on this document. Alwaysverify current medications with the patient. buPROPion SR 12hr (Wellbutrin SR) 200 MG tablet Active DULoxetine (Cymbalta) 60 MG capsule Active lamoTRIgine (LaMICtal) 100 MG tablet Active liothyronine (Cytomel) 25 MCG tablet 25mcg 3am, 11am 05/20/2023 Active liothyronine 5 MCG capsule 5mcg 4pm and 11pm 05/12/2022 Active [place]-3 Fatty Acids (FISH OIL PO) Active Magnesium [...] disease 01/19/2020 07/21/2023 Graves disease 10/20/2009 07/21/2023 Family History Medical History Relation Name Comments [...] = 0.6 oz pur e alcohol) Comments Unknown Sex and Gender Information Value Date Recorded Sex Assigned at Female 05/26/2023 1:49 PM CDT Legal Sex Female 1:47 PM CDT Gender Identity Female 05/26/2023 1:49 PM CDT Sexual Orientation Not on file 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 Not on file Not on file Not o n file Last Filed Vital Signs Vital Sign Reading Time Taken Comments Blood Pressure 130/64 09/07/2024 8:58 AM DRYWALL MECHANIC Pulse 74 09/07/2024 8:58 AM DRYWALL MECHANIC Temperature - - Respiratory Rate - - Oxygen Saturation 98% 09/07/2024 8:58 AM DRYWALL MECHANIC Inhaled Oxygen Concentration - - Weight 102.2 kg (225 lb 3.2 oz) 09/07/2024 8:58 AM DRYWALL MECHANIC Height 170.2 cm (5' 7 ) 09/07/2024 8:58 AM DRYWALL MECHANIC Body Mass Index 35.27 09/07/2024 8:58 AM DRYWALL MECHANIC Plan of Treatment Health Maintenance Due Date Last Done Comments TEDDY (AGES 45-75) - COL ON CA SCREENING [...] VACCINE (1 - 2023-2 5 season) 2024 SCREENING FOR DIABETES 09/07/2024 DEPRESSION SCREENING 09/28/2024 INFLUENZA VACCINE (Season Ended) 2025 Respiratory Syncytial Virus (RSV) Vaccine Pt: or [...] to complete this topic MENINGOCOCCAL (Group B) VACC INE SHARED DECISION-MAKING Aged Out No longer eligibl e based on patient's age to complete this topic MENINGOCOCCAL GROUPS A/C/Y/W VACCINE Aged Out No longer eligible b ased on patient's age to complete this topic [place] [address] [address] [place] [address] Care Teams Jewelsmith Relationship Specialty Start Date End Date Naina Jean-Baptiste MD [address] [place] [id number] PCP - General Family Medicine 05/26/23
--- OUTSIDE RECORDS SUMMARY | 2025-01-20 00:36 | XMS_ITS | Patient Health Record ---
Author Organization [facility] Address [address] [facility] [address] [place] [address] Care Team Providers Care [employer] Internship Name Role Phone LUIZ JEAN-BAPTISTE MD Primary Care Provider Unajesika short Rodolfo Recinos Unavailable [phone] Migration, Provider Unavailable Unavailable Allergies No Known Allergies Reason For Referral No Information Medications Medication SIG (Take, Route, Frequency, Duration) Notes Start Date End Date Status buPROPion HCl ER (SR) 200 MG 1 TABLET Oral twice a day for 90 days Active lamoTRIgine 100 MG 1 tablet Oral Once a day for 90 days Active Liothyronine Sodium 5 MCG 1 tablet on an empty stomach Oral twice a day for 90 days Active DULoxetine HCl 30 MG 1 capsule Oral Once a day for 90 days Active Propranolol HCl 20 MG Oral for 30 Days Active Liothyronine Sodium 25 MCG 1 tablet on a n empty stomach Oral twice a day for 90 days Active Immunizations Vaccine Route Administration Date Status Comme nts Pfizer [employer]ion[employer] Covid-19 Vac cine 2nd dose Unknown 11/29/2020 Administered Pfizer [employer]ion[employer] Covid-19 Vac cine 2nd dose Unknown 12/20/2020 Administered Pfizer [employer]ion[employer] Covid-19 Vac cine 2nd dose Unknown 08/27/2021 Administered Social History Tobacco Use: Social History Observation Description Date Details (start date - stop date) Former Smoker 01/26/1981 - 08/11/2009 Sex Assigned At : Social History Observation Description Sex Assigned At Female Tobacco Control (Standard) Question Answer Notes Tobacco use: Former smoker When did you start smoking? 01/26/1981 When did you stop smoking? 08/11/2009 How long has it been since you last smoked? Grea ter than 10 years Problems Problem Type SNOMED Code ICD Code Onset Dates Problem Status W/U Status Risk Notes Problem Severe depressed bipolar I disorder without psychotic features (95838632) Bipolar disorder, current episode depressed, severe, without psychotic features (F31.4) Active confirmed Problem Generalized anxiety disorder (25129849) Generalized anxiety disorder (F41.1) 4 Active confirmed Vital Signs Heart Rate 77 /min 09/15/2024 Height-cm 170.18 cm 09/15/2024 Blood pressure diastolic 87 mm Hg 09/15/2024 Weight-kg 100.61 kg 05/19/2024 Height 67.00 in 09/15/2024 Blood pressure systolic 155 mm Hg 09/15/2024 Weight 221.8 lbs 05/19/2024 BMI 34.73 kg/m2 05/19/2024 Encounters Encounter Location Date Provider Diagnosis [facility] [employer] [facility] [address] [place] [address] 05/19/2024 Rodolfo Recinos Bipolar disorder, current episode depressed, severe, without psychotic features F31.4 and Generalized anxiety disorder F41.1 [facility] [employer] [facility] [address] [place] [address] 09/15/2024 Rodolfo Jorje Bipolar disorder, current episode depressed, severe, without psychotic features F31.4 and Generalized anxiety disorder F41.1 [facility] [employer] [facility] [address] [place] [address] 02/13/2024 Provider Migration [facility], [facility] [address] [place] [address] 02/14/2024 Provider Migration [facility], [facility] [address] [place] [address] 03/22/2024 [facility] [address] [place] [address] 03/24/2024 Rodolfo [facility], [facility] [address] [place] [address] 04/07/2024 [facility] [address] [place] [address] 04/07/2024 Rodolfo Recinos [facility], [facility] [address] [place] [address] 04/07/2024 Rodolfo Recinos Bipolar disorder, current episode depressed, severe, without psychotic features F31.4 [facility] [employer] [address] [place] [address] 04/07/2024 Rodolfo Recinos Assessments Encounter Date Diagnosis (ICD Code) Assessment Notes Treatment Notes Treatment Clinical Notes Section Notes 04/07/2024 Bipolar disorder, current episode depressed, severe, without psychotic features (ICD-10 - F31.4) 05/19/2024 Bipolar disorder, current episode depressed, severe, without psychotic features (ICD-10 - F31.4) Depression and Mood Instability - Assessment: Patient reports persistent rageful outbursts, increased feelings of sadness and hopelessness on the current dose of Wellbutrin (bupropion) 200 mg. Patient requests to increase the dose back to 400 mg and mentions having more downs and sad thoughts, sometimes feeling hopeless on the lower dose. Patient continues duloxetine 60 mg once daily and lamotrigine 100 mg once daily. - Plan: a. Increase Wellbutrin (bupropion) to 400 mg slow release once daily. b. Send a 90-day prescription to [facility]. c. Monitor mood and any side effects related to the medication change. d. Consider vagal nerve stimulator study for bipolar depression if the patient does not improve with the current medication regimen. e. Schedule a follow-up appointment in five months. Thyroid Management (Noemi's) - Assessment: Patient is currently on T3 therapy (25 mcg twice daily and 5 mcg at bedtime) due to poor conversion of T4 to T3 and adverse effects with Amber Thyroid. Patient reports significant improvement on T3-only therapy, including reduced brain fog and less morning fatigue. Patient needs a new provider for T3 prescription management, as the previous doctor in [place] does not offer telehealth services in [place]. - Plan: a. Patient to contact Dr. Mcclure in [place] for potential T3 therapy management. b. Encourage the patient to discuss T3 therapy with their primary care physician or other endocrinologists in [place]. c. If needed, provide a three-month prescription of T3 to bridge the gap until the patient finds a new provider. d. Continue to monitor thyroid function and symptoms related to Noemi's disease. e. Patient to consider seeking a functional medicine doctor for thyroid management. Pharmacy Issues - Assessment: Patient reports being charged for 30-day refills at [facility], but not for 90-day refills. - Plan: a. Ensure all prescriptions are sent as 90-day refills to [facility] to avoid additional charges for the patient. Upcoming [employer] Appointment - Assessment: Patient has scheduled an appointment with an leisure travel agent in August who may prescribe T3 therapy. - Plan: a. Encourage the patient to discuss their T3 therapy needs and preferences with the leisure travel agent during the appointment. 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 Patient self-monitors body temperature, heart rate, and blood pressure. - Plan: - Continue liothyronine: 25 mcg at 3 a.m. and 11 a.m., and 5 mcg at 4 p.m. and 10 p.m. (total 60 mcg per day) - Monitor TSH, T3, and T4 levels with primary care physician, Dr. Jean-Baptiste - Discuss with Dr. Jean-Baptiste about monitoring blood work and managing thyroid treatment - Follow up with Dr. Jean-Baptiste in December for annual exam - Provided 6-month prescription for T3 medication Fibromyalgia (possibly resolved due to thyroid treatment) - Assessment: Patient believes fibromyalgia diagnosis may have been related to thyroid issues. - Plan: - Consider tapering off duloxetine with medical supervision if fibromyalgia symptoms remain resolved - Monitor for any recurrence of fibromyalgia symptoms Treatment-resistant Depression - Plan: - Continue bupropion 200 mg twice a day - Continue Lamotrigine 100 mg - Continue duloxetine 30 mg (unless tapering off due to resolved fibromyalgia) - Monitor for any manic phase or other issues potentially related to thyroid disorder - Consider potential benefits of T3 in managing treatment-resistant depression Blood Pressure Management - Assessment: Patient reports infrequent use of beta blockers. - Plan: - Continue monitoring blood pressure - Keep beta ashley prescription for emergency situations (e.g., accidental double-dose or heart palpitations) Follow-up - Plan: - Schedule a 6-month follow-up appointment with Dr. Recinos - See Dr. 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 Patient self-monitors body temperature, heart rate, and blood pressure. - Plan: - Continue liothyronine: 25 mcg at 3 a.m. and 11 a.m., and 5 mcg at 4 p.m. and 10 p.m. (total 60 mcg per day) - Monitor TSH, T3, and T4 levels with primary care physician, Dr. Jean-Baptiste - Discuss with Dr. Jean-Baptiste about monitoring blood work and managing thyroid treatment - Follow up with Dr. Jean-Baptiste in December for annual exam - Provided 6-month prescription for T3 medication Fibromyalgia (possibly resolved due to thyroid treatment) - Assessment: Patient believes fibromyalgia diagnosis may have been related to thyroid issues. - Plan: - Consider tapering off duloxetine with medical supervision if fibromyalgia symptoms remain resolved - Monitor for any recurrence of fibromyalgia symptoms Treatment-resistant Depression - Plan: - Continue bupropion 200 mg twice a day - Continue Lamotrigine 100 mg - Continue duloxetine 30 mg (unless tapering off due to resolved fibromyalgia) - Monitor for any manic phase or other issues potentially related to thyroid disorder - Consider potential benefits of T3 in managing treatment-resistant depression Blood Pressure Management - Assessment: Patient reports infrequent use of beta blockers. - Plan: - Continue monitoring blood pressure - Keep beta ashley prescription for emergency situations (e.g., accidental double-dose or heart palpitations) Follow-up - Plan: - Schedule a 6-month follow-up appointment with Dr. Recinos - See Dr. Jean-Baptiste in December for annual exam and discuss thyroid management and blood work monitoring 05/19/2024 Generalized anxiety disorder (ICD-10 - F41.1) Depression and Mood Instability - Assessment: Patient reports persistent rageful outbursts, increased feelings of sadness and hopelessness on the current dose of Wellbutrin (bupropion) 200 mg. Patient requests to increase the dose back to 400 mg and mentions having more downs and sad thoughts, sometimes feeling hopeless on the lower dose. Patient continues duloxetine 60 mg once daily and lamotrigine 100 mg once daily. - Plan: a. Increase Wellbutrin (bupropion) to 400 mg slow release once daily. b. Send a 90-day prescription to [facility]. c. Monitor mood and any side effects related to the medication change. d. Consider vagal nerve stimulator study for bipolar depression if the patient does not improve with the current medication regimen. e. Schedule a follow-up appointment in five months. Thyroid Management (Noemi's) - Assessment: Patient is currently on T3 therapy (25 mcg twice daily and 5 mcg at bedtime) due to poor conversion of T4 to T3 and adverse effects with Amber Thyroid. Patient reports significant improvement on T3-only therapy, including reduced brain fog and less morning fatigue. Patient needs a new provider for T3 prescription management, as the previous doctor in [place] does not offer telehealth services in [place]. - Plan: a. Patient to contact Dr. Mcclure in [place] for potential T3 therapy management. b. Encourage the patient to discuss T3 therapy with their primary care physician or other endocrinologists in [place]. c. If needed, provide a three-month prescription of T3 to bridge the gap until the patient finds a new provider. d. Continue to monitor thyroid function and symptoms related to Noemi's disease. e. Patient to consider seeking a functional medicine doctor for thyroid management. Pharmacy Issues - Assessment: [facility], but not for 90-day refills. - Plan: a. Ensure all prescriptions are [facility] to avoid additional charges for the patient. Upcoming [employer] Appointment - Assessment: Patient has scheduled an appointment with an leisure travel agent in August who may prescribe T3 therapy. - Plan: a. Encourage the patient to discuss their T3 therapy needs and preferences with the leisure travel agent during the appointment. Plan Of Treatment Next Appt Details Provider Name:Rodolfo Farley Jorje , 03/09/2025 11:00:00 AM, [address], [address], [place], [address], Insurance Providers Payer Name Payer Address Payer Phone Subscriber Number Group Number Insured Name Patient Relationship to Insured Coverage Start Date Coverage End Date [facility] Medicare Replacement/ Advantage - Ppo [address] [address] [place] [address] [id number] SAAD MCDERMOTT Self - patient is the insured Medical (General) History Medical History History ICD Code Problems: Generalized anxiety disorder Hyperthyroidism Hypothyroidism Severe depressed bipolar I disorder Thyrotoxicosis Vitamin D deficiency , Surgical History Surgery Date(Month/Year) Any surgical history Other 11/02/2004 Hysterectomy ([id number]) 11/02/2004
--- OUTSIDE RECORDS SUMMARY | 2025-01-20 00:36 | XMS_ITS | Referral Summary ---
Author Organization [facility] Address [address] [place] [address] Care Team Providers Care Manager Primary Name Role Phone Naina Jean-Baptiste MD Primary Care Provider + Encounters Date Type Department Care Team Description 11/29/2024 10:58 AM [employer]INE - 11/29/2024 11:59 PM [employer] Hospital Encounter [facility] [address] [place] [address] Screening mammogram, encounter for Discharge Disposition: Discharge to home or self care from Last 3 Months Allergies Active Allergy Reactions Criticality Noted Date Comments Omeprazole Headache Low 10/08/2017 Medications omega 3-zvl-dla-fish oil 300-1,000 mg capsule TAKE 1 CAPSULE TWICE DAILY. 8 Active lamoTRIgine (LaMICtal) 100 mg tablet 8 Active buPROPion SR (WELLBUTRIN SR) 200 mg 12 hr tablet 2 times daily. 8 Active cholecalciferol (VITAMIN D-3) 5,000 unit capsule Take 1 capsule (5,000 Units total) by mouth daily. [address] (CYMBALTA) 60 mg capsule 9 Active thyroid ([place] Thyroid) 90 mg tablet 90 mg daily Active liothyronine (CYTOMEL) 25 mcg tablet 2 Active cyclobenzaprine (FLEXERIL) 10 mg tablet Take 1 tablet (10 mg total) by mouth 3 (three) times a day as needed for muscle spasms 3 Active liothyronine (CYTOMEL) 5 mcg tablet 2 Active thyroid ([place] Thyroid) 30 mg tablet 3 Active dextromethorpha [...] 06/09/2019 Assessment & Plan (09/07/2024 1:35 PM [employer]ACHINE): Symptoms stable on lubricating drops prn. Assessment & Plan (09/02/2023 11:54 AM [employer] MACHINE): Signs and symptoms are greatly improved. Using Ats daily prn. CPM. Assessment & Plan (08/27/2022 1:09 PM [employer] MACHINE): Continue ATs prn. Assessment & Plan (08/21/2021 4:20 PM [employer]ACHINE): Well controlled with OTC ATs. F/u annually. [...] 18 Assessment & Plan (09/07/2024 1:35 PM [employer] MACHINE): Mild. Update Srx. F/u annually. Assessment & Plan (09/02/2023 11:53 AM [employer] MACHINE): Stable on exam today. Recommended better lighting for reading. F/u annually. Assessment & Plan (08/27/2022 1:09 PM [employer] MACHINE): Stable. update SRx. F/u annually Assessment & Plan (08/21/2021 4:20 PM [employer] MACHINE): Surgery not indicated. Update SRx. F/u annually. [...] permission to contact her psychiatrist, Dr. Recinos, [facility] [phone]. If no contraindication, I will trial Lyrica [...] I disorder, most recent episode depresse d 10/08/2017 Hyperlipidemia 10/08/2017 Hypertension 10/08/2017 Hyperthyroidism 10/08/2017 [...] Overview (01/01/2017): Tendinitis of left rotator cuff [place] or callus 08/20/2014 Overview (01/01/2017): Corns and [...] on file Legal Sex Female 3:29 AM [employer] Gender Identity Not on file Sexual Orientation Not on file Last Filed Vital Signs Vital Sign Reading Time Taken Comments Blood Pressure 138/96 08/11/2023 10:40 AM [employer] Pulse 102 08/11/2023 10:40 AM [employer] Temperature 37.2 C (99 F) 08/11/2023 10:40 AM [employer]ACHINE Respiratory Rate 20 08/23/2019 6:06 PM [employer]ACH[employer] Oxygen Saturation 97% 08/11/2023 10:40 AM [employer]ACHINE Inhaled Oxygen Concentration - - Weight 101.2 kg (223 lb) 08/11/2023 10:40 AM [employer]ACHINE verbal Height 170.2 cm (5' 7 ) 08/11/2023 10:40 AM [employer]ACH[employer] verbal Body Mass Index 34.93 08/11/2023 10:40 AM [employer]ACH[employer] Plan of Treatment Not on file Procedures Procedure Name Priority Date/Time Associated Diagnosis Comments SCREENING MAMMOGRAM BILATERAL W STEPHANI Schedule Routine, Read Routine (OP Routine) 11/29/2024 11:09 AM [employer]ACH[employer] Screening mammogram, encounter for from Last 3 Months Results * Screening Mammogram Bilateral W Stephani (11/29/2024 11:09 AM [employer] MACHINE) Anatomical Region Laterality Modality Breast Bilateral Mammography 11/29/2024 11:3 3 AM [employer]ACHINE Impressions 11/29/2024 11:33 AM [employer]ACHINE There is no mammographic evidence of malignancy. A 1 year screening mammogram is recommended. BI-RADS: 1 - Negative. The patient has been or will be contacted. The patient will be entered into a reminder system with a target due date of 1 year for her next mammogram. Electronically signed by: Mamadou Marte M.D. Narrative 11/29/2024 11:33 AM [employer]ACH[employer] EXAMINATION: SCREENING MAMMOGRAM BILATERAL W STEPHANI ORDERING HEALTHCARE PROVIDER: SELF SCREENING MAMMOGRAM HISTORY: Routine screening mammography. COMPARISON: 05/27/2022, 06/14/2021, 01/30/2021, 08/31/2019 TECHNIQUE: CC and MLO views of the bilateral breasts were obtained with digital technique using breast tomosynthesis with C view. Computer aided detection was utilized. FINDINGS: DENSITY: There are scattered areas of fibroglandular density. BREASTS: There are no suspicious masses, suspicious calcifications, or other suspicious findings in either breast. There has been no suspicious interval change. us Self Screening Mammogram IMG MAMMO PROCEDURES Fi nal Result from Last [address] [place] [address] [place] [address] [facility] MEDICARE ADVANTAGE [place] [id number] UHC MEDICARE ADVANTAGE UHC MEDICARE ADVANTAGE Care Teams Manager Primary Relationship Specialty Start Date End Date Naina Jean-Baptiste MD PCP - General 01/22/21
--- OUTSIDE RECORDS SUMMARY | 2025-01-20 00:36 | XMS_ITS | Clinical Summary ---
Author Organization [facility] Address [address] [place] [address] Care Team Providers Care Bread Wrapper Operator Name Role Phone Naina Jean-Baptiste MD Primary Care Provider + Allergies Active Allergy Reactions Criticality Noted Date Comments Omeprazole Headache Low 10/08/2017 Medications omega 0-awh-rny-fish oil 300-1,000 mg capsule TAKE 1 CAPSULE TWICE DAILY. 8 Active lamoTRIgine (LaMICtal) 100 mg tablet 8 Active buPROPion SR (WELLBUTRIN SR) 200 mg 12 hr tablet 2 times daily. 8 Active cholecalciferol (VITAMIN D-3) 5,000 unit capsule Take 1 capsule (5,000 Units total) by mouth daily. [address] (CYMBALTA) 60 mg capsule 9 Active thyroid ([place] Thyroid) 90 mg tablet 90 mg daily Active liothyronine (CYTOMEL) 25 mcg tablet 2 Active cyclobenzaprine (FLEXERIL) 10 mg tablet Take 1 tablet (10 mg total) by mouth 3 (three) times a day as needed for muscle spasms 3 Active liothyronine (CYTOMEL) 5 mcg tablet 2 Active thyroid ([place] Thyroid) 30 mg tablet 3 Active dextromethorpha [...] 06/09/2019 Assessment & Plan (09/07/2024 1:35 PM HOME HEALTH AID): Symptoms stable on lubricating drops prn. Assessment & Plan (09/02/2023 11:54 AM HOME HEALTH AID): Signs and symptoms are greatly improved. Using Ats daily prn. CPM. Assessment & Plan (08/27/2022 1:09 PM HOME HEALTH AID): Continue ATs prn. Assessment & Plan (08/21/2021 4:20 PM HOME HEALTH AID): Well controlled with OTC ATs. F/u annually. [...] 18 Assessment & Plan (09/07/2024 1:35 PM HOME HEALTH AID): Mild. Update Srx. F/u annually. Assessment & Plan (09/02/2023 11:53 AM HOME HEALTH AID): Stable on exam today. Recommended better lighting for reading. F/u annually. Assessment & Plan (08/27/2022 1:09 PM HOME HEALTH AID): Stable. update SRx. F/u annually Assessment & Plan (08/21/2021 4:20 PM HOME HEALTH AID): Surgery not indicated. Update SRx. F/u annually. [...] permission to contact her psychiatrist, Dr. Recinos, [facility] [phone]. If no contraindication, I will trial Lyrica [...] Overview (01/01/2017): Tendinitis of left rotator cuff Disney or callus 08/20/2014 Overview (01/01/2017): Corns and callus Resolved Problems Problem Noted Date Diagnosed Date Resolved Date Meibomian gland dysfunction (MGD) of both eyes 05/04/2017 05/28/2018 Encounters Date Type Department Care Team Description 11/29/2024 10:58 AM HOME HEALTH AID - 11/29/2024 11:59 PM HOME HEALTH AID Hospital Encounter [facility] [address] [place] [id number] Screening mammogram, encounter for Discharge Disposition: Discharge to home or self care from Last 3 Months Surgical History Surgery Date Site/Laterality Comments VAGINAL HYSTERECTOMY Hysterectomy, vaginal HYSTERECTOMY Total Hysterectomy - [facility] 2004 (Added by TW Conv) SHOULDER SURGERY [facility] (Added by TW Conv) SHOULDER SURGERY Shoulder Surgery - (Added by TW Conv) HYSTERECTOMY Hysterectomy - endometrtiosis - no BSO (Added by TW Conv) ROTATOR CUFF REPAIR Rotator Cuff Repair - right (Added by TW Conv) GA BIOPSY THYROID PERCUTANEO US CORE NEEDLE Biopsy [...] on file Legal Sex Female 3:29 AM HOME HEALTH AID Gender Identity Not on file Sexual Orientation Not on file Obstetrics History Para Term AB IAB SAB Ectopic Multiple Livin g Live Births 0 0 0 0 0 0 0 0 0 0 0 Last Filed Vital Signs Vital Sign Reading Time Taken Comments Blood Pressure 138/96 08/11/2023 10:40 AM HOME HEALTH AID Pulse 102 08/11/2023 10:40 AM HOME HEALTH AID Temperature 37.2 C (99 F) 08/11/2023 10:40 AM HOME HEALTH AID Respiratory Rate 20 08/23/2019 6:06 PM HOME HEALTH AID Oxygen Saturation 97% 08/11/2023 10:40 AM HOME HEALTH AID Inhaled Oxygen Concentration - - Weight 101.2 kg (223 lb) 08/11/2023 10:40 AM HOME HEALTH AID verbal Height 170.2 cm (5' 7 ) 08/11/2023 10:40 AM HOME HEALTH AID verbal Body Mass Index 34.93 08/11/2023 10:40 AM HOME HEALTH AID Plan of Treatment Health Maintenance Due Date Last Done Comments Colon Cancer Screening-Colonoscopy 1965 Depression Screening 1965 Hepatitis C Screening 1965 DTaP/Tdap/Td Vaccine (1 - Tdap) 1974 Hepatitis B Screening 1981 Regular Well Visit/Exam 18-64 1981 Zoster Vaccine (1 of 2) 2013 Covid-19 Vaccine ( - season) 2024 12/20/2020, 11/29/2020 Influenza Vaccine (#1) 2024 Breast Cancer Screening-Mammogram 11/29/2025 11/29/2024, 05/27/2022, 08/31/2019, Additional history exists Pneumococcal vaccine <65 Aged Out No longer eligible based on patient's age to complete this topic Procedures Procedure Name Priority Date/Time Associated Diagnosis Comments SCREENING MAMMOGRAM BILATERAL W STEPHANI Schedule Routine, Read Routine (OP Routine) 11/29/2024 11:09 AM HOME HEALTH AID Screening mammogram, encounter for from Last 3 Months Results * Screening Mammogram Bilateral W Stephani (11/29/2024 11:09 AM HOME HEALTH AID) Anatomical Region Laterality Modality Breast Bilateral Mammography 11/29/2024 11:3 3 AM HOME HEALTH AID Impressions 11/29/2024 11:33 AM HOME HEALTH AID There is no mammographic evidence of malignancy. A 1 year screening mammogram is recommended. BI-RADS: 1 - Negative. The patient has been or will be contacted. The patient will be entered into a reminder system with a target due date of 1 year for her next mammogram. Electronically signed by: Mamadou Marte M.D. Narrative 11/29/2024 11:33 AM HOME HEALTH AID EXAMINATION: SCREENING MAMMOGRAM BILATERAL W STEPHANI ORDERING [...] Result from Last [address] [place] [address] [place] [address] [facility] MEDICARE ADVANTAGE [facility] MEDICARE ADVANTAGE [facility] MEDICARE ADVANTAGE Care Teams Bread Wrapper Operator Relationship Specialty Start Date End Date Naina Jean-Baptiste MD PCP - General 01/22/21
--- OUTSIDE RECORDS SUMMARY | 2025-01-20 00:36 | XMS_ITS | Clinical Summary ---
Author Organization [facility] Address [address] [place] [address] Care Team Providers Care Psychologist Clinical Name Role Phone Naina Jean-Baptiste MD Primary Care Provider Allergies Active Allergy Reactions Criticality Noted Date Comments Midazolam Other (See Comments) 12/05/2024 Agitation Omeprazole Headache Low 12/05/2024 Medications cholecalciferol , vitamin D3, 5,000 unit Take 5,000 Units by mouth daily. Active DULoxetine (CYMBALTA) 60 mg Capsule, Delayed Release(E.C.) Take 60 mg by mouth daily. Active lamoTRIgine (LaMICtal) 100 mg tablet Take 100 mg by mouth daily. Active OMEGA-3 FATTY ACIDS-FISH OIL ORAL Take 1,000 mg by mouth daily. Active VITAMIN B COMPLEX ORAL Take 1 Tablet by mouth daily. Active liothyronine (CYTOMEL) 25 mcg Tablet Take 25 mcg by mouth 2 times daily. Active liothyronine (CYTOMEL) 5 mcg Tablet Take 5 mcg by mouth daily at bedtime. Active magnesium OXIDE (MAG-OX) 400 mg (241.3 mg magnesium) tablet Take 400 mg by mouth daily. Active naproxen (NAPROSYN) 500 mg tablet Take 500 mg by mouth 2 times daily with meals. Active metroNIDAZOLE (MetrogeL) 1 % Gel Apply to affected area 1 time daily as needed. Active Active Problems Problem Noted Date Diagnosed Date Personal history of tobacco use 12/05/2024 Metabolic syndrome 12/05/2024 Mixed hyperlipidemia 12/05/2024 Thyrotoxicosis with toxic multinodular goiter Obesity, unspecified 12/05/2024 Rosacea 12/05/2024 Lumbar radiculopathy 12/05/2024 Encounters Date Type Department Care Team Description 01/16/2025 Prep for Surgery [facility] [place] [address] [facility] [address] [place] [address] Wally Guido DO Lumbar radiculopathy (Primary Dx) 12/27/2024 External Device Data STL ABSTRACTION Provider, Abstract 12/14/2024 External Device Data STL ABSTRACTION Provider, Abstract 12/06/2024 10:12 AM CDT - 12/06/2024 11:59 PM CDT Hospital Encounter [facility] [address] [place] [id number] Wally Guido DO Discharge Disposition: Home or Self Care 12/06/2024 External Device Data STL ABSTRACTION Provider, Abstract 12/06/2024 External Device Data STL ABSTRACTION Provider, Abstract 12/06/2024 Telephone [facility] [place] [address] [facility] [address] [place] [address] Wally Guido, Question 12/05/2024 External Device Data STL ABSTRACTION Provider, Abstract 12/05/2024 Orders Only [facility] [place] [address] [facility] [address] [place] [address] Head, Lata R, BILLBOARD MECHANIC 12/03/2024 External Device Data STL ABSTRACTION Provider, Abstract 12/02/2024 External Device Data STL ABSTRACTION Provider, Abstract 11/30/2024 External Device Data STL ABSTRACTION Provider, Abstract 11/30/2024 External Device Data STL ABSTRACTION Provider, Abstract 11/29/2024 External Device Data STL ABSTRACTION Provider, Abstract 11/25/2024 Telephone [facility] [place] [address] 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 Gender Identity Not on file Sexual Orientation Not on file Last Filed Vital Signs Vital Sign Reading Time Taken Comments Blood Pressure 148/90 12/06/2024 9:37 AM CDT Pulse 75 12/06/2024 9:37 AM CDT Temperature - - Respiratory Rate 16 12/06/2024 9:37 AM CDT Oxygen Saturation - - Inhaled Oxygen Concentration - - Weight - - Height 170.2 cm (5' 7 ) 12/06/2024 9:37 AM CDT Body Mass Index - - Plan of Treatment Upcoming Encounters Date Type Department Care Team (Late st Contact Info) Description 01/25/2025 10:20 AM CDT Appointment [facility] [address] [place] [address] Dony Springer MD [address] [place] [phone] Health Maintenance Due Date Last Done Comments Pre-Diabetes and Diabetes Screening 1965 DTAP/TDAP/TD VACCINES (1 - Tdap) 1982 BREAST CANCER SCREENING 2003 COLORECTAL SCREENING 02/05/2008 Colorectal Cancer Screening 02/05/2008 FIT-DNA Q 3 years 02/05/2008 FIT/FOBT Q 1 year 02/05/2008 Flex Sig/CT Colonography Q 5 years 02/05/2008 ZOSTER VACCINE (1 of 2) 2013 INFLUENZA VACCINE (#1) 2024 RSV VACCINE (60+ or ) (1 - 1-dose 75+ series) 2038 Procedures Procedure Name Priority Date/Time Associated Diagnosis Comments XR HIP 2 OR 3 VIEWS RT Routine 12/06/2024 10:19 AM CDT Chronic right hip pain from Last 3 Months Results * XR HIP 2 OR 3 VIEWS RT (12/06/2024 10:19 AM CDT) Anatomical Region Laterality Modality Lower Extremity Right Computed Radiogr aphy 12/06/2024 10:1 9 AM CDT Impressions 12/06/2024 11:10 AM CDT IMPRESSION: 1. Normal radiographs of the right hip. DICTATION LOCATION: Location 1 - [facility] Narrative 12/06/2024 11:10 AM CDT EXAMINATION: XR HIP 2 OR 3 VIEWS RT HISTORY: See Diagnosis. Chronic right hip pain; Chronic right hip pain FINDINGS: No prior study is available for comparison at the time of this dictation. Alignment is normal. No acute fractures identified. No joint space abnormality is seen. Procedure Note Vi Robbins MD - 12/06/2024 EXAMINATION: XR HIP 2 OR 3 VIEWS RT HISTORY: See Diagnosis. Chronic right hip pain; Chronic right hip pain FINDINGS: No prior study is available for comparison at the time of this dictation. Alignment is normal. No acute fractures identified. No joint space abnormality is seen. IMPRESSION: 1. Normal radiographs of the right hip. DICTATION LOCATION: Location [address] [place] [address] Wallyjohann Guido DO DIAGNOSTIC IMAGING ORDERA BLES Final Result from Last 3 Months Insurance PAUL [place]UIR[place] [id number] [facility] [id number] Care Teams Psychologist Clinical Relationship Specialty Start Date End Date Naina Jean-Baptiste MD [address] [facility] [address] [phone] PCP - General Family Practice 11/25/24
[2025-01-20 08:23] VITALS: BP 133/79; PULSE 64; RESP 20; TEMP 36.7; O2SAT 99; BMI 34.8
--- NOTE | 2025-01-20 08:23 | P.PNAN_ITS ---
Anes - Initial Pre Proc Eval Procedure: Operation Date: 01/20/25 09:45 Proposed Procedures p Esophagogastroduodenoscopy - Bc Hidalgo MD Date/Time: 01/20/25 08:23 Surgeon: Bc Hidalgo MD Pre Op Diagnosis: Gastro-esophageal reflux disease without esophagit Patient Data Age: 59 Gender: F Height: 1.7 m Weight: 101 kg Allergies Allergy/AdvReac Type Severity Reaction Status Date / Time midazolam Allergy Unknown AGGITATION, Verified 01/20/25 08:20 HYPER WITH LAST LAPROSCOPY omeprazole Allergy Unknown severe Verified 01/20/25 08:20 headache ( en 10-14-07) ??VERSED AdvReac Mild AGGITATION, Uncoded 01/20/25 08:20 HYPER WITH LAST LAPROSCOPY Home Medications ?Medication ?Instructions ?Recorded ?Confirmed ?Type bupropion HCl 200 mg tablet,12 hr 200 mg PO BID 01/10/21 01/20/25 History sustained-release (Wellbutrin SR) cholecalciferol (vitamin D3) 125 125 mcg PO DAILY 01/10/21 01/20/25 History mcg (5,000 unit) capsule duloxetine 60 mg capsule,delayed 60 mg PO DAILY 01/10/21 01/20/25 History release lamotrigine 100 mg tablet 100 mg PO DAILY 01/10/21 01/20/25 History (Lamictal) omega-3 fatty acids 1,000 mg 1,000 mg PO BID 01/10/21 01/20/25 History capsule (Fish Oil Concentrate) vitamin B complex (B 1 tablet PO DAILY 01/10/21 01/20/25 History Complex-Vitamin B12 tablet) liothyronine 25 mcg tablet 25 mcg PO BID 01/20/23 01/20/25 History liothyronine 5 mcg tablet 5 mcg PO .HS 01/20/23 01/20/25 History magnesium oxide 400 mg PO DAILY 01/20/23 01/20/25 History naproxen 500 mg tablet 500 mg PO BID #60 tabs 05/25/23 12/07/24 Rx metronidazole 1 % topical gel 1 applic topical QHS #60 grams 01/26/24 01/20/25 Rx (Metrogel) propranolol 20 mg tablet 20 mg PO DAILY #30 tabs 06/21/24 01/20/25 Rx sucralfate 1 gram tablet 1 g PO TID #90 tabs 11/18/24 01/20/25 Rx Patient hx anesthesia problems: none Family hx anesthesia problems: none Results Review: All pre-operative results and documents have been reviewed as part of the pre- operative evaluation. [facility] Past Medical History Medical History Epigastric pain Fatigue Current smoker Dry eye syndrome of unspecified lacrimal gland Chronic GERD Menopausal and female climacteric states Thyrotoxicosis, unspecified without thyrotoxic crisis or storm Surgical History Surgical History Hx of hysterectomy (~2004) Hx of biopsy Thyroid/ thyroiditis/ benign Hx of colonoscopy Family History Family History Grandparent Diabetes mellitus, Onset Age: 60 Family history of cardiovascular disease, Onset Age: 60 Acute myocardial infarction, Onset Age: 60 Social History Social History Smoking packs per day: 2 Smoking cigarettes per day: 40.0 Years smoked: 30 Smoking pack-years: 60.00 Smoking status: Former smoker Tobacco type: cigarettes Substance use: never Substance use type: does not use Do You Feel Safe in your Home?: Yes Lack of Transportation: No Lack of Food: Never True Current Housing: I Have Housing Concerned About Future Housing: No Difficulty Paying Gas/Electric Bills: No Difficulty Paying for Meds: No Currently Unemployed: No Education: Associate Degree Difficulty w/ Childcare or Family Care: No Living arrangements: with family Gender identity (if verbalized by the patient): Female Anes - Eval Final PreProcedure Day of Procedure 01/20/25 08:23 Patient weight: obese Heart: regular rate and rhythm Lungs: clear to auscultation Airway: Mallampati scale class II Neurological: alert and oriented Last oral intake: >/= 8 hours ASA classification: III Emergent: no Anesthetic plan: proceed Anesthesia type and monitoring: general GIVS and standard monitoring Results Review: All pre-operative results and documents have been reviewed as part of the pre- operative evaluation. Informed Consent: The patient's anesthetic plan and its attendant risks and benefits were discussed with the patient/family/POA. Questions were solicited and answers provided to the satisfaction of the patient/family/POA.
[2025-01-20] MEDS: LACTATED RINGERS 1,000 ML 150 ML IV CONT (08:26)
--- NOTE | 2025-01-20 08:45 | PM.HPGS ---
History of Present Illness History of Present Illness Consent: Risks, benefits, and alternatives have been discussed and questions answered. Patient agrees to proceed with procedure. 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 Chronic GERD Menopausal and female climacteric states Thyrotoxicosis, unspecified without thyrotoxic crisis or storm Surgical History Surgical History Hx of hysterectomy (~2004) Hx of biopsy Thyroid/ thyroiditis/ benign Hx of colonoscopy Family History Family History Grandparent Diabetes mellitus, Onset Age: 60 Family history of cardiovascular disease, Onset Age: 60 Acute myocardial infarction, Onset Age: 58 Social History Social History Smoking packs per day: 2 Smoking cigarettes per day: 40.0 Years smoked: 30 Smoking pack-years: 60.00 Smoking status: Former smoker Tobacco type: cigarettes Substance use: never Substance use type: does not use Do You Feel Safe in your Home?: Yes Lack of Transportation: No Lack of Food: Never True Current Housing: I Have Housing Concerned About Future Housing: No Difficulty Paying Gas/Electric Bills: No Difficulty Paying for Meds: No Currently Unemployed: No Education: Associate Degree Difficulty w/ Childcare or Family Care: No Living arrangements: with family Gender identity (if verbalized by the patient): Female Meds Home Medications and Allergies Home Medications ?Medication ?Instructions ?Recorded ?Confirmed ?Type bupropion HCl 200 mg tablet,12 hr 200 mg PO BID 01/10/21 01/20/25 History sustained-release (Wellbutrin SR) cholecalciferol (vitamin D3) 125 125 mcg PO DAILY 01/10/21 01/20/25 History mcg (5,000 unit) capsule duloxetine 60 mg capsule,delayed 60 mg PO DAILY 01/10/21 01/20/25 History release lamotrigine 100 mg tablet 100 mg PO DAILY 01/10/21 01/20/25 History (Lamictal) omega-3 fatty acids 1,000 mg 1,000 mg PO BID 01/10/21 01/20/25 History capsule (Fish Oil Concentrate) vitamin B complex (B 1 tablet PO DAILY 01/10/21 01/20/25 History Complex-Vitamin B12 tablet) liothyronine 25 mcg tablet 25 mcg PO BID 01/20/23 01/20/25 History liothyronine 5 mcg tablet 5 mcg PO .HS 01/20/23 01/20/25 History magnesium oxide 400 mg PO DAILY 01/20/23 01/20/25 History naproxen 500 mg tablet 500 mg PO BID #60 tabs 05/25/23 12/07/24 Rx metronidazole 1 % topical gel 1 applic topical QHS #60 grams 01/26/24 01/20/25 Rx (Metrogel) propranolol 20 mg tablet 20 mg PO DAILY #30 tabs 06/21/24 01/20/25 Rx sucralfate 1 gram tablet 1 g PO TID #90 tabs 11/18/24 01/20/25 Rx Allergies Allergy/AdvReac Type Severity Reaction Status Date / Time midazolam Allergy Unknown AGGITATION, Verified 01/20/25 08:20 HYPER WITH LAST LAPROSCOPY omeprazole Allergy Unknown severe Verified 01/20/25 08:20 headache ( en 1-17-08) ??VERSED AdvReac Mild AGGITATION, Uncoded 01/20/25 08:20 HYPER WITH LAST LAPROSCOPY Vital Signs Vital Signs - 24 hr 01/20/25 08:23 Temperature 98.1 F Pulse Rate 64 Respiratory Rate 20 Blood Pressure 133/79 Pulse Oximetry 99 Oxygen Delivery Room Air Exam Const: General: comfortable and no acute distress HENMT: Face/Nose/Sinus: Normal nares present Eyes: General: appearance normal, both eyes and all related structures Neck: Neck: no JVD Resp: Auscultation: clear to auscultation bilaterally Cardio: Rate: regular rate Rhythm: regular rhythm GI: Inspection: non-distended GI Palp: Yes Soft to palpation Skin: General skin exam: normal color Neuro: General: gait normal Speech: normal speech Extrem: General: normal to inspection Psych: Mental Status: mental status grossly normal Assessment and Plan Assessment and plan (1) Trouble swallowing: Code(s): R13.10 - Dysphagia, unspecified Status: Acute Assessment and Plan: egd (2) Epigastric pain: Code(s): R10.13 - Epigastric pain Status: Acute
[2025-01-20] MEDS: BENZOCAINE (*SP) 60 ML SPRAY CAN (HURRICAINE) 1 SPRAY MUCOUS MEM (08:51)
[2025-01-20 09:02] VITALS: BP 122/66; PULSE 68; RESP 21; O2SAT 100
[2025-01-20 09:12] VITALS: BP 123/65; PULSE 71; RESP 21; O2SAT 98
[2025-01-20 09:22] VITALS: BP 134/61; PULSE 62; RESP 20; O2SAT 98
== END 2025-01-20 09:27 | disposition home or self-care (01) ==
PROVIDERS: PCP Family Medicine; Referring Provider Nurse Practitioner Family; Visit Provider Internal Medicine Gastroenterology
PROC: 0DJ08ZZ Inspection of Upper Intestinal Tract, Via Natural or Artificial Opening Endoscopic (ICD-10-PCS; CPT 43239; principal; 2025-01-20 09:45)
DX: K21.9 Gastro-esophageal reflux disease without esophagitis (principal); E05.90 Thyrotoxicosis, unspecified without thyrotoxic crisis or storm; E66.9 Obesity, unspecified; Z68.34 Body mass index [BMI] 34.0-34.9, adult; Z79.1 Long term (current) use of non-steroidal anti-inflammatories (NSAID); Z98.890 Other specified postprocedural states; Z87.891 Personal history of nicotine dependence; Z82.49 Family history of ischemic heart disease and other diseases of the circulatory system
CPT/HCPCS: 43239; 88305; J2003; J2704; J7120

== ENCOUNTER 2025-05-16 11:02 | Outpatient (CLI) | payer MEDICARE, SELFPAY ==
--- NOTE | ~2025-05-16 | DEXA_ITS ---
Bone Density Report Name: SAAD MCDERMOTT Age: 60 Sex: Female Ethnicity: White Date of : 1965 Indication: postmenopausal; screening for osteoporosis; asthma or emphysema; hysterectomy; Referring Provider: LUIZ CRUZ Study: Bone densitometry was performed. Exam Date: May 16, 2025 Accession number: [id number] Bone Density: Region BMD T-score Z-score Classification AP Spine(L1-L4) 1.247 1.8 3.4 Normal Femoral Neck (Left) 0.826 -0.2 1.2 Normal Total Hip (Left) 1.047 0.9 1.9 Normal Femoral Neck (Right) 0.868 0.2 1.5 Normal Total Hip (Right) 1.055 0.9 2.0 Normal Total Hip Mean 1.051 0.9 2.0 Normal World Health Organization criteria for BMD impression classify patients as: Normal (T-score at or above -1.0), Osteopenia (T-score between -1.0 and -2.5), or Osteoporosis (T-score at or below -2.5). 10-year Fracture Risk: FRAX not reported because: All T-scores for Spine Total, Hip Total, Femoral Neck at or above -1.0 Clinical Information Provided by Patient: Has used the following medications: HRT (i.e. estrogen/hormone therapy), Vitamin D, Calcium Has the following medical conditions: Asthma or Emphysema, Hysterectomy Patient maximum height was 67.5 Menopause Age: 48 No regular weight bearing exercise Drinks caffeinated beverages Onset of menses at age 11 Number of children 0 Impression: The patient has normal bone mass. Discussion: BONE DENSITY IS ABOVE THE MINIMUM DESIRABLE LEVEL AT ALL SKELETAL SITES TESTED. This patient?s bone mineral density is above the minimum desirable level (T-score -1.0 or better) at all sites measured. The patient should follow a healthful lifestyle (good nutrition with adequate calcium and vitamin D, and appropriate weight-bearing exercise). Follow-Up: Consider repeating this study in 5 years or sooner if there is some new clinical indication. Reported by: FRANCISCO on 05/16/2025 11:26:00 AM. Reviewed, dictated and finalized at location A.
== END 2025-05-16 11:03 | disposition home or self-care (01) ==
LOC: MICIMG 11:03
PROVIDERS: PCP Family Medicine; Visit Provider Family Medicine
DX: Z78.0 Asymptomatic menopausal state (principal)
CPT/HCPCS: 77080

== ENCOUNTER 2025-08-23 14:58 | Outpatient (CLI) | payer MEDICARE, SELFPAY ==
--- OUTSIDE RECORDS SUMMARY | 2025-08-23 15:01 | XMS_ITS | Clinical Summary ---
Author Organization [facility] Address [address] [place] [address] Care Team Providers Care Dry Wall Sprayer Name Role Phone Naina Jean-Baptiste MD Primary Care Provider + Allergies Active Allergy Reactions Criticality Noted Date Comments Omeprazole Headache Low 10/08/2017 Medications omega 7-iyg-vwo-fish oil 300-1,000 mg capsule TAKE 1 CAPSULE TWICE DAILY. 8 Active lamoTRIgine (LaMICtal) 100 mg tablet 8 Active buPROPion SR (WELLBUTRIN SR) 200 mg 12 hr tablet 2 times daily. 8 Active cholecalciferol (VITAMIN D-3) 5,000 unit capsule Take 1 capsule (5,000 Units total) by mouth daily. [address] (CYMBALTA) 60 mg capsule 9 Active thyroid (Murtaugh Thyroid) 90 mg tablet 90 mg daily Active liothyronine (CYTOMEL) 25 mcg tablet 2 Active cyclobenzaprine (FLEXERIL) 10 mg tablet Take 1 tablet (10 mg total) by mouth 3 (three) times a day as needed for muscle spasms 3 Active liothyronine (CYTOMEL) 5 mcg tablet 2 Active thyroid (Murtaugh Thyroid) 30 mg tablet 3 Active dextromethorpha [...] 06/09/2019 Assessment & Plan (09/07/2024 1:35 PM PATHOLOGY LABORATORY AIDES TEACHER): Symptoms stable on lubricating drops prn. Assessment & Plan (09/02/2023 11:54 AM PATHOLOGY LABORATORY AIDES TEACHER): Signs and symptoms are greatly improved. Using Ats daily prn. CPM. Assessment & Plan (08/27/2022 1:09 PM PATHOLOGY LABORATORY AIDES TEACHER): Continue ATs prn. Assessment & Plan (08/21/2021 4:20 PM PATHOLOGY LABORATORY AIDES TEACHER): Well controlled with OTC ATs. F/u annually. [...] 18 Assessment & Plan (09/07/2024 1:35 PM PATHOLOGY LABORATORY AIDES TEACHER): Mild. Update Srx. F/u annually. Assessment & Plan (09/02/2023 11:53 AM PATHOLOGY LABORATORY AIDES TEACHER): Stable on exam today. Recommended better lighting for reading. F/u annually. Assessment & Plan (08/27/2022 1:09 PM PATHOLOGY LABORATORY AIDES TEACHER): Stable. update SRx. F/u annually Assessment & Plan (08/21/2021 4:20 PM PATHOLOGY LABORATORY AIDES TEACHER): Surgery not indicated. Update SRx. F/u annually. [...] permission to contact her psychiatrist, Dr. Recinos, [facility] [phone]. If no contraindication, I will trial Lyrica [...] Overview (01/01/2017): Tendinitis of left rotator cuff [place] or callus 08/20/2014 Overview (01/01/2017): Corns and callus Resolved Problems Problem Noted Date Diagnosed Date Resolved Date Meibomian gland dysfunction (MGD) of both eyes 05/04/2017 05/28/2018 Encounters Date Type Department Care Team Description 08/22/2025 Telephone [facility] Gastroenterology at [address] [place] [address] Urszula Field from Last 3 Months Surgical History Surgery Date Site/Laterality Comments VAGINAL HYSTERECTOMY Hysterectomy, vaginal HYSTERECTOMY Total Hysterectomy - [place] 2004 (Added by TW Conv) SHOULDER SURGERY Shoulder Surgery Right - [facility] 2016 (Added by TW Conv) SHOULDER SURGERY Shoulder Surgery - (Added by TW Conv) HYSTERECTOMY Hysterectomy - endometrtiosis - no BSO (Added by TW Conv) ROTATOR CUFF REPAIR Rotator Cuff Repair - right (Added by TW Conv) CO BIOPSY THYROID PERCUTANEO US CORE NEEDLE Biopsy [...] on file Legal Sex Female 3:29 AM PATHOLOGY LABORATORY AIDES TEACHER Gender Identity Not on file Sexual Orientation Not on file Obstetrics History Para Term AB IAB SAB Ectopic Multiple Livin g Live Births 0 0 0 0 0 0 0 0 0 0 0 Last Filed Vital Signs Vital Sign Reading Time Taken Comments Blood Pressure 138/96 08/11/2023 10:40 AM PATHOLOGY LABORATORY AIDES TEACHER Pulse 102 08/11/2023 10:40 AM PATHOLOGY LABORATORY AIDES TEACHER Temperature 37.2 C (99 F) 08/11/2023 10:40 AM PATHOLOGY LABORATORY AIDES TEACHER Respiratory Rate 20 08/23/2019 6:06 PM PATHOLOGY LABORATORY AIDES TEACHER Oxygen Saturation 97% 08/11/2023 10:40 AM PATHOLOGY LABORATORY AIDES TEACHER Inhaled Oxygen Concentration - - Weight 101.2 kg (223 lb) 08/11/2023 10:40 AM PATHOLOGY LABORATORY AIDES TEACHER verbal Height 170.2 cm (5' 7) 08/11/2023 10:40 AM PATHOLOGY LABORATORY AIDES TEACHER verbal Body Mass Index 34.93 08/11/2023 10:40 AM PATHOLOGY LABORATORY AIDES TEACHER Plan of Treatment Health Maintenance Due Date Last Done Comments Colon Cancer Screening-Colonoscopy 1963 Depression Screening 1963 Hepatitis C Screening 1963 DTaP/Tdap/Td Vaccine (1 - Tdap) 1974 Hepatitis B Screening 1981 Regular Well Visit/Exam 18-64 1981 Zoster Vaccine (1 of 2) 2013 Covid-19 Vaccine (3 - season) 2025 12/20/2020, 11/29/2020 Influenza Vaccine (#1) 2025 Breast Cancer Screening-Mammogram 11/29/2025 11/29/2024, 05/27/2022, 08/31/2019, Additional history exists Pneumococcal vaccine <65 Aged Out No longer eligible based on patient's age to complete this topic Procedures Procedure Name Priority Date/Time Associated Diagnosis Comments SCREENING MAMMOGRAM BILATERAL W STEPHANI Schedule Routine, Read Routine (OP Routine) 11/29/2024 11:09 AM PATHOLOGY LABORATORY AIDES TEACHER Screening mammogram, encounter for from Last 3 Months or Most Recently Relevant to Health Maintenance Results * Screening Mammogram Bilateral W Stephani (11/29/2024 11:09 AM PATHOLOGY LABORATORY AIDES TEACHER) Anatomical Region Laterality Modality Breast Bilateral Mammography 11/29/2024 11:3 3 AM PATHOLOGY LABORATORY AIDES TEACHER Impressions 11/29/2024 11:33 AM PATHOLOGY LABORATORY AIDES TEACHER There is no mammographic evidence of malignancy. A 1 year screening mammogram is recommended. BI-RADS: 1 - Negative. The patient has been or will be contacted. The patient will be entered into a reminder system with a target due date of 1 year for her next mammogram. Electronically signed by: Mamadou Marte M.D. Narrative 11/29/2024 11:33 AM PATHOLOGY LABORATORY AIDES TEACHER EXAMINATION: SCREENING MAMMOGRAM BILATERAL W STEPHANI ORDERING [...] Recently Relevant to Health Maintenance [place] [address] [facility] MEDICARE ADVANTAGE [facility] MEDIC[facility] Address: [address] [place] [phone] [facility] MEDICARE ADVANTAGE [facility] Address: [address] [place] [phone] [facility] MEDICARE ADVANTAGE [facility] MEDIC[facility] Address: [address] [address] Care Teams Dry Wall Sprayer Relationship Specialty Start Date End Date Naina Jean-Baptiste MD PCP - General 01/22/21
--- OUTSIDE RECORDS SUMMARY | 2025-08-23 15:01 | XMS_ITS | Clinical Summary ---
Author Organization [facility] [employer] Address [address] [place] [address] Care Team Providers Care Pre Certification Specialist Name Role Phone Naina Jean-Baptiste MD Primary Care Provider [phone] Source Comments [facility] [employer],non-owned Affiliates and Associated Physician Practices is amultiple site organization consisting of ambulatory clinics and hospital sitesin [place], [place], [place] and [place]. This disclosure is being madepursuant to the Care Everywhere program and may not contain all information available regarding this patient. Last updated 18.[facility] [employer] [facility] Allergies No known active allergies Medications * [...] capsule 5mcg 4pm and 11pm 05/12/2022 Active [place]-3 Fatty Acids (FISH OIL PO) Active Magnesium [...] Years Used Date Smoking Tobacco: Former Cigarettes 0 Q uit: 2008 Smokeless Tobacco: Never Alcohol [...] Comments Blood Pressure 130/64 09/07/2024 8:58 AM DIRECTOR OF VOLUNTEER SERVICES Pulse 74 09/07/2024 8:58 AM DIRECTOR OF VOLUNTEER SERVICES Temperature - - Respiratory Rate - - Oxygen Saturation 98% 09/07/2024 8:58 AM DIRECTOR OF VOLUNTEER SERVICES Inhaled Oxygen Concentration - - Weight 102.2 kg (225 lb 3.2 oz) 09/07/2024 8:58 AM DIRECTOR OF VOLUNTEER SERVICES Height 170.2 cm (5' 7) 09/07/2024 8:58 AM DIRECTOR OF VOLUNTEER SERVICES Body Mass Index 35.27 09/07/2024 8:58 AM DIRECTOR OF VOLUNTEER SERVICES Plan of Treatment Health Maintenance Due Date Last Done Comments COLOGUARD (AGES 45-75) - COL ON CA SCREENING 1963 COLON MONITORING 1963 COLONOSCOPY - COLON CA SCREENING 1963 CT COLONOGRAPHY - COLON CA SCREENING 1963 Colorectal Cancer Screening 1963 FIT - COLON CA SCREENING 1963 FLEX SIG - COLON CA SCREENING 1963 LIPID TESTING 1963 MAMMOGRAM 1963 HIV SCREENING 1978 HEPATITIS C SCREENING 01/30/1981 DTAP/TDAP/TD VACCINES (1 - Tdap) 1982 PNEUMOCOCCAL VACCINE 50+ (1 of 1 - PCV) 2013 ZOSTER VACCINE (1 of 2) 2013 SCREENING FOR DIABETES 09/07/2024 DEPRESSION SCREENING 09/28/2024 COVID-19 VACCINE (1 - 2024-2 6 season) 2025 INFLUENZA VACCINE (#1) 2025 Respiratory Syncytial Virus (RSV) Vaccine Pt: [...] patient's age to complete [place] [address] [facility] MANAGED MEDICARE ADV SELF PAY NO INSURANCE Member Subscriber Plan / Payer (Ef fective for All Dates) Name:Saad Mcdermott Member ID:Not on file Relation to Subscriber:Not on file Name:SAAD MCDERMOTT Subscriber ID:Not on file (Home) Address: [address] [place] [address] [place] [address] Payer ID:Not on file Group ID:Not on file Type:Self Pay Address: [facility] Care Teams Pre Certification Specialist Relationship Specialty Start Date End Date Naina Jean-Baptiste MD [address] [place] [address] PCP - General Family Medicine 05/26/23
--- OUTSIDE RECORDS SUMMARY | 2025-08-23 15:01 | XMS_ITS | Clinical Summary ---
Author Organization [facility] Address [address] [place] [address] Care Team Providers Care Organic Preparation Analyst Name Role Phone Naina Jean-Baptiste MD Primary [...] area 1 time daily as needed. Active amoxicillin (AMOXIL) 500 mg Tablet 12/08/2024 Active chlorhexidine gluconate 0.12 % Mouthwash 12/08/2024 Active ibuprofen (MOTRIN) 800 mg tablet 12/08/2024 Active LORazepam (ATIVAN) 0.5 mg tablet Take 0.5 mg by mouth every 8 hours as needed. Active propranoloL (INDERAL) 20 mg tablet Oral for 30 Days Active buPROPion HCL (WELLBUTRIN SR) 200 mg Sustained Release 12 hour tablet 2 times daily. Active [place]-3 Fatty Acids 1,000 mg Capsule Take by mouth. Active gabapentin (NEURONTIN) 100 mg capsule Take 2 Capsules (200 mg) by mouth 3 times daily. 540 Capsule 02/22/2025 Active Active Problems Problem Noted Date Diagnosed Date Personal history of tobacco use 12/05/2024 Metabolic syndrome 12/05/2024 Mixed hyperlipidemia 12/05/2024 Thyrotoxicosis with toxic multinodular goiter Obesity, unspecified 12/05/2024 Rosacea 12/05/2024 Lumbar radiculopathy 12/05/2024 Hypothyroidism, acquired 09/07/2024 Vitamin D deficiency 09/07/2024 Generalized anxiety disorder 10/15/2023 Severe depressed bipolar I d isorder without psychotic features 10/15/2023 Groin discomfort, right 07/13/2023 Degenerative disc disease, lumbar 05/20/2023 Lumbar and sacral osteoarthritis 05/20/2023 Sciatic leg pain 07/20/2021 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 Graves disease 10/20/2009 Encounters Date Type Department Care Team Description 08/15/2025 External Device Data STL ABSTRACTION Provider, Abstract 08/02/2025 11:00 AM FURNACE AND WASH EQUIPMENT OPERATOR Office Visit [facility] [place] [address] [place] [address] Kristel Meeks ANP Chronic right hip pain (Primary Dx); Primary osteoarthritis of right hip; Lumbar spondylosis; Degeneration of intervertebral disc of lumbar region with discogenic back pain 07/26/2025 External Device Data STL ABSTRACTION Provider, Abstract 07/25/2025 External Device Data STL ABSTRACTION Provider, Abstract 06/26/2025 10:10 AM CDT - 06/26/2025 11:59 PM CDT Hospital Encounter [facility] Pain Management Procedures [address] [place] [address] Dony Springer MD Discharge Disposition: Home or Self Care 06/26/2025 10:04 AM CDT - 06/26/2025 11:59 PM CDT Hospital Encounter [facility] Procedures [place] [address] [place] [address] Dony Springer MD Discharge Disposition: Home or Self Care 06/07/2025 Prep for Surgery [facility] [place] [address] [place] [address] Dony Springer MD Lumbar radiculopathy (Primary Dx) 06/07/2025 Telephone [facility] [place] [address] [place] [address] Kristel Meeks ANP Follow Up from Last 3 Months Immunizations Immunization Administration Dates Next Due (PFIZER)(12 YR UP) COVID-19 VACCINE - EMERGENCY USE AUTHORIZATION, MRNA, [id number](PF) 30 MCG/0.3 ML IM SUSP 08/27/2021,12/20/2020,11/29/2020 Social History Tobacco Use Types Packs/Day Years Used Date Smoking Tobacco: Former Cigarettes Tobacco Cessation:Counseling Given: Not Answered Feeling Safe Answer Date Recorded Are you in a relationship wi th someone who hurts you emotionally and/or physically? No 06/26/2025 Comments No Sex and Gender Information Value Date Recorded Sex Assigned at Not on file Legal Sex Female 11:29 AM FURNACE AND WASH EQUIPMENT OPERATOR Gender Identity Not on file Sexual Orientation Not on file Last Filed Vital Signs Vital Sign Reading Time Taken Comments Blood Pressure 121/84 08/02/2025 10:58 AM FURNACE AND WASH EQUIPMENT OPERATOR Pulse 94 08/02/2025 10:58 AM FURNACE AND WASH EQUIPMENT OPERATOR Temperature 36.5 C (97.7 F) 06/26/2025 10:12 AM CDT Respiratory Rate 14 08/02/2025 10:58 AM FURNACE AND WASH EQUIPMENT OPERATOR Oxygen Saturation 97% 08/02/2025 10:58 AM FURNACE AND WASH EQUIPMENT OPERATOR Inhaled Oxygen Concentration - - Weight 102.5 kg (226 lb) 08/02/2025 10:58 AM FURNACE AND WASH EQUIPMENT OPERATOR Height 170.2 cm (5' 7) 08/02/2025 10:58 AM FURNACE AND WASH EQUIPMENT OPERATOR Body Mass Index 35.4 08/02/2025 10:58 AM FURNACE AND WASH EQUIPMENT OPERATOR Plan of Treatment Health Maintenance Due Date Last Done Comments Pre-Diabetes and Diabetes Screening 1963 DTAP/TDAP/TD VACCINES (1 - Tdap) 1982 BREAST CANCER SCREENING 2003 COLORECTAL SCREENING 02/05/2008 Colorectal Cancer Screening 02/05/2008 FIT-DNA Q 3 years 02/05/2008 FIT/FOBT Q 1 year 02/05/2008 Flex Sig/CT Colonography Q 5 years 02/05/2008 ZOSTER VACCINE (1 of 2) 2013 INFLUENZA VACCINE (#1) 2025 COVID-19 Vaccine ( - season) 2025 08/27/2021, 12/20/2020, 11/29/2020 RSV VACCINE (60+ or ) (1 - 1-dose 75+ series) 2038 Procedures Procedure Name Priority Date/Time Associated Diagnosis Comments XR FLUORO NEEDLE GUIDANCE SPINE Routine 06/26/2025 10:49 AM CDT PAIN PROCEDURE Routine 06/26/2025 10:40 AM CDT Lumbar radiculopathy from Last 3 Months Results * XR FLUORO NEEDLE GUIDANCE SPINE (06/26/2025 10:49 AM CDT) Narrative [facility] [place] - 06/26/2025 10:50 AM CDT Order information only. Exam was auto-finalized. us Dony Springer MD DIAGNOSTIC IMAGING [facility] Final Result [facility] CLIA# [id number] [address] [place] [address] * PAIN PROCEDURE (06/26/2025 10:40 AM CDT) Narrative [facility] [place] - 06/26/2025 10:40 AM CDT Dony Springer MD 06/26/2025 10:49 AM Interventional Procedure Note Lumbar/Sacral transforaminal epidural steroid injection RIGHT L5/S1 TFESI (Lumbarized S1 vertebrae) Time Out Performed: Yes Attending Physician present for time-out: Dony Springer MD Performed by Dony Springer MD, RN corrective therapy aide teacher Consent Obtained and Documented: Confirmed Correct patient: Confirmed Correct procedure: Confirmed Correct side/site: Confirmed Correct patient position: Confirmed Correct X-Rays available: Confirmed Equipment available: Confirmed Diagnosis: (M54.16) Lumbar radiculopathy Patient Position: Prone Sterile preparation and draped in the standard fashion Approach: transforaminal Needle(s): #22 G Quincke, Length: 5 inches Image Guidance: Fluoroscopy/ C arm Local; Pulse oximetry, NIBP monitoring for entire procedure Local anesthesia Lido 1%, 3 cc to the skin and subQ tissues, Needle placed in coaxial fashion via oblique view of the foramen and placed easily in the foramen, position of needle confirmed with AP and LAT views, prior to contrast study. Contrast study performed and this confirmed dye spread along the RIGHT L5/S1 epidural space and nerve root without vascular or intrathecal uptake Images saved Anesthesia for procedure: Local; Pulse oximetry, NIBP monitoring for entire procedure. Medications administered: 1% lidocaine PF 3 cc skin 80 mg Kenalog, 1cc 1% lidocaine PF via epidural route, flushed with 0.5 cc PF 0.9% normal saline EBL: <1 cc's DISCHARGE SUMMARY: Complications: None Condition on Discharge: Stable and unchanged from admission Disposition/Discharge: Home Post-op or Final Diagnosis: (M54.16) Lumbar radiculopathy Dony Springer MD NEUROLOGY ORDERABLES nal Result Performing Organization Address City/State/[facility] Co de Phone Number [facility]# [id number] [address] [place] [address] from Last [address] [place] [address] [place] [id number] [facility] [id number] Care Teams Organic Preparation Analyst Relationship Specialty Start Date End Date Naina Jean-Baptiste MD [facility] [address] [place] [address] PCP - General Family Practice 11/25/24
--- OUTSIDE RECORDS SUMMARY | 2025-08-23 15:01 | XMS_ITS | Encounter Summary ---
Author Organization [facility] Address [address] [place] [address] Care Team Providers Care Drawing Supervisor Name Role Phone Nania Jean-Baptiste MD Primary Care Provider + Encounter Details Date Type Department Care Team (Late st Contact Info) Description 08/22/2025 Telephone [facility] Gastroenterology at [address] [place] [address] Urszula Field Social History Tobacco Use Types Packs/Day Years Used Date Smoking Tobacco: Former Cigarettes 1.3 20 1 988 - 2008 Smokeless Tobacco: Former Alcohol Use Standard Drinks/Week Comments No 0 (1 standard drink = 0.6 oz pur e alcohol) Comments No Sex and Gender Information Value Date Recorded Sex Assigned at Not on file Legal Sex Female 3:29 AM MOLD SPRAYER Gender Identity Not on file Sexual Orientation Not on file documented as of this encounter Miscellaneous Notes * Telephone Encounter - Urszula Field - 08/22/2025 11:19 AM CST Images from the original note were not included. OFFICE VISITS CHECK LIST CONFIRM DEMOGRAPHICS AND INSURANCE INFORMATION. Ask patient to contact the office if there is an insurance change between now and scheduled appointment Have you seen a GI doctor in the past? YES, patient will request prior records sent Have you seen ANY doctor for your current symptoms? no Ask patient to bring medication list. yes Was patient referred by PCP? no Does Patient need Insurance referral? no SPRAYER documented in this encounter Plan of Treatment Not on file documented as of this encounter Visit Diagnoses Not on filedocumented in this encounter Care Teams Drawing Supervisor Relationship Specialty Start Date End Date Naina Jean-Baptiste MD PCP - General 01/22/21 documented as of this encounter
[2025-08-23 18:25] LABS: Alanine Aminotransferase 28 U/L (6-35); Albumin Level 4.3 g/dL (3.5-5.1); Alkaline Phosphatase 63 U/L (38-126); Anion Gap 6 mmol/L (4-12); Aspartate Amino Transferase 40 U/L (14-36); Bilirubin,Total 0.6 mg/dL (0.2-1.3); Blood Urea Nitrogen 17 mg/dL (7-17); Calcium 9.4 mg/dL (8.4-10.2); Carbon Dioxide 28 mmol/L (22-30); Chloride 105 mmol/L (98-107); Estimated Glomerular Filt Rate 56; Glucose 98 mg/dL (65-110); Potassium 4.0 mmol/L (3.4-5.0); Sodium 139 mmol/L (137-145); Total Protein 7.4 g/dL (6.3-8.2)
== END 2025-08-23 14:59 | disposition home or self-care (01) ==
LOC: ANHGOSHLAB 14:59
PROVIDERS: PCP Family Medicine; Visit Provider Family Medicine
DX: R10.11 Right upper quadrant pain (principal); E88.810 Metabolic syndrome
CPT/HCPCS: 36415; 80053

== ENCOUNTER 2025-08-30 10:25 | Outpatient (CLI) | payer MEDICARE, SELFPAY ==
--- NOTE | ~2025-08-30 | US_ITS ---
US abdomen limited INDICATION: Right upper quadrant pain PROCEDURE: Realtime right upper abdominal ultrasound. COMPARISON: No prior studies for comparison. FINDINGS: The pancreas is normal without focal mass or pancreatic ductal dilation. Fatty infiltration of the liver. There is normal directional flow in the portal vein. The gallbladder is normal without stones, gallbladder wall thickening or pericholecystic fluid. Common bile duct measures 5 mm. No sonographic Gardiner's sign. IMPRESSION: 1: Fatty infiltration of the liver. Reviewed, dictated and finalized at location I. T DIRECTOR
== END 2025-08-30 10:26 | disposition home or self-care (01) ==
LOC: GOSHIMG 10:26
PROVIDERS: PCP Family Medicine; Visit Provider Family Medicine
DX: R10.11 Right upper quadrant pain (principal); R19.5 Other fecal abnormalities; K76.0 Fatty (change of) liver, not elsewhere classified
CPT/HCPCS: 76705

== ENCOUNTER 2025-09-12 09:52 | Outpatient (CLI) | payer MEDICARE, SELFPAY ==
--- NOTE | ~2025-09-12 | NM_ITS ---
EXAM/PROCEDURE: [id number] HISTORY: RUQ pain COMPARISON: None available. TECHNIQUE: Hepatobiliary scintigraphy Dose: 4.8 mCi technetium 99m Choletec. Following visualization of small bowel activity, patient was injected with 2.1 mcg of CCK. FINDINGS: Prompt homogeneous liver uptake noted. The gallbladder is seen within 20 minutes. Gallbladder ejection fraction calculated at 83%. IMPRESSION: No evidence of cystic duct obstruction. Gallbladder ejection fraction 83% at the high end of normal range. Reviewed, dictated and finalized at location A. ATIONAL COMMUNICATION CHIEF IMPRESSION: No evidence of cystic duct obstruction. Gallbladder ejection fraction 83% at th e high end of normal range.
--- OUTSIDE RECORDS SUMMARY | 2025-09-12 11:17 | XMS_ITS | Clinical Summary ---
Author Organization [facility] Address [address] [facility] [place] [address] Care Team Providers Care Drill Grinder Name Role Phone Naina Jean-Baptiste MD Primary Care Provider [phone] [phone] Source Comments [facility],non-owned Affiliates and Associated Physician Practices is amultiple site organization consisting of ambulatory clinics and hospital sitesin [place], [place], [place] and [place]. This disclosure is being madepursuant to the Care Everywhere program and may not contain all information available regarding this patient. Last updated 18.[facility] Allergies No known active allergies Medications * [...] capsule 5mcg 4pm and 11pm 05/12/2022 Active [place]-3 Fatty Acids (FISH OIL PO) Active Magnesium [...] Comments Blood Pressure 130/64 09/07/2024 8:58 AM AUTO RESEARCH ENGINEER Pulse 74 09/07/2024 8:58 AM AUTO RESEARCH ENGINEER Temperature - - Respiratory Rate - - Oxygen Saturation 98% 09/07/2024 8:58 AM AUTO RESEARCH ENGINEER Inhaled Oxygen Concentration - - Weight 102.2 kg (225 lb 3.2 oz) 09/07/2024 8:58 AM AUTO RESEARCH ENGINEER Height 170.2 cm (5' 7) 09/07/2024 8:58 AM AUTO RESEARCH ENGINEER Body Mass Index 35.27 09/07/2024 8:58 AM AUTO RESEARCH ENGINEER Plan of Treatment Health Maintenance Due Date [...] to complete [place] [address] [facility] MANAGED MEDICARE ADV SELF PAY NO INSURANCE Member Subscriber Plan / Payer (Ef fective for All Dates) Name:Saad Mcdermott Member ID:Not on file Relation to Subscriber:Not on file Name:SAAD MCDERMOTT Subscriber ID:Not on file (Home) Address: [address] [place] [address] [place] [id number] Payer ID:Not on file Group ID:Not on file Type:Self Pay Address: [facility] Care Teams Drill Grinder Relationship Specialty Start Date End Date Naina Jean-Baptiste MD [address] [place] [address] PCP - General Family Medicine 05/26/23
--- OUTSIDE RECORDS SUMMARY | 2025-09-12 11:17 | XMS_ITS | Clinical Summary ---
Author Organization [facility] Office [facility] Address [address] [place] [address] Care Team Providers Care Ceramic Mold Designer Name Role Phone Naina Jean-Baptiste MD Primary [...] 12 hour tablet 2 times daily. Active [place]-3 Fatty Acids 1,000 mg Capsule Take by [...] Encounters Date Type Department Care Team Description 09/05/2025 External Device Data ST[facility] ABSTRACTION Provider, Abstract 08/15/2025 External Device Data [facility] ABSTRACTION Provider, Abstract 08/02/2025 11:00 AM MANAGER COPY Office Visit [facility]- [id number] [place] [address] Kristel Meeks, MARIAN Chronic right hip pain (Primary Dx); Primary osteoarthritis of right hip; Lumbar spondylosis; Degeneration of intervertebral disc of lumbar region with discogenic back pain 07/26/2025 External Device Data ST[facility] ABSTRACTION Provider, Abstract 07/25/2025 External Device Data [facility] ABSTRACTION Provider, Abstract 06/26/2025 10:10 AM CDT - 06/26/2025 11:59 PM CDT Hospital Encounter [facility] Pain Management Procedures [address] [place] [address] Dony Springer MD Discharge Disposition: Home or Self Care 06/26/2025 10:04 AM CDT - 06/26/2025 11:59 PM CDT Hospital Encounter [facility] Procedures [id number] [facility] [address] [place] [address] Dony Springer MD Discharge Disposition: Home or Self Care from Last 3 Months Immunizations Immunization Administration Dates Next Due (PFIZER)(12 YR UP) COVID-19 VACCINE - EMERGENCY USE AUTHORIZATION, MRNA, [id number](PF) 30 MCG/0.3 ML IM SUSP 08/27/2021,12/20/2020,11/29/2020 Social [...] on file Legal Sex Female 11:29 AM MANAGER COPY Gender Identity Not on file Sexual Orientation Not on file Last Filed Vital Signs Vital Sign Reading Time Taken Comments Blood Pressure 121/84 08/02/2025 10:58 AM MANAGER COPY Pulse 94 08/02/2025 10:58 AM MANAGER COPY Temperature 36.5 C (97.7 F) 06/26/2025 10:12 AM CDT Respiratory Rate 14 08/02/2025 10:58 AM MANAGER COPY Oxygen Saturation 97% 08/02/2025 10:58 AM MANAGER COPY Inhaled Oxygen Concentration - - Weight 102.5 kg (226 lb) 08/02/2025 10:58 AM MANAGER COPY Height 170.2 cm (5' 7) 08/02/2025 10:58 AM MANAGER COPY Body Mass Index 35.4 08/02/2025 10:58 AM MANAGER COPY Plan of Treatment Health Maintenance Due Date Last Done Comments Pre-Diabetes and Diabetes Screening 1965 DTAP/TDAP/TD VACCINES (1 - Tdap) 1982 BREAST CANCER SCREENING 2003 COLORECTAL SCREENING 02/05/2008 Colorectal Cancer Screening 02/05/2008 FIT-DNA Q 3 years 02/05/2008 FIT/FOBT Q 1 year 02/05/2008 Flex Sig/CT Colonography Q 5 years 02/05/2008 ZOSTER VACCINE (1 of 2) 2013 INFLUENZA VACCINE (#1) 2025 COVID-19 Vaccine ( season) 2025 08/27/2021, 12/20/2020, 11/29/2020 RSV VACCINE (60+ or ) (1 - 1-dose 75+ series) 2038 Procedures Procedure Name Priority Date/Time Associated Diagnosis Comments XR FLUORO NEEDLE GUIDANCE SPINE Routine 06/26/2025 10:49 AM CDT PAIN PROCEDURE Routine 06/26/2025 10:40 AM CDT Lumbar radiculopathy from Last 3 Months Results * XR FLUORO NEEDLE GUIDANCE SPINE (06/26/2025 10:49 AM CDT) Narrative [facility] - 06/26/2025 10:50 AM CDT Order information only. Exam was auto-finalized. Dony Springer MD DIAGNOSTIC IMAGING [facility] Final Result [facility] Basic-Fit [facility] CLIA# [id number] [address] [place] [address] * PAIN PROCEDURE (06/26/2025 10:40 AM CDT) Narrative [facility] - 06/26/2025 10:40 AM CDT Dony Springer MD 06/26/2025 10:49 AM Interventional Procedure Note Lumbar/Sacral transforaminal epidural steroid injection RIGHT L5/S1 TFESI (Lumbarized S1 vertebrae) Time Out Performed: Yes Attending Physician present for time-out: Dony Springer MD Performed by Dony Springer MD, RN solder leveler printed circuit boards Consent Obtained and Documented: Confirmed Correct patient: [...] NEUROLOGY ORDERABLES nal Result Performing Organization Address City/State/[facility] Co de Phone Number [id number] [address] [place] [address] from Last [address] [place] [address] [facility] [id number] Care Teams Ceramic Mold Designer Relationship Specialty Start Date End Date Naina Jean-Baptiste MD [address] [facility] [address] [address] PCP - General Family Practice 11/25/24
== END 2025-09-12 09:53 | disposition home or self-care (01) ==
PROVIDERS: PCP Family Medicine; Visit Provider Family Medicine
DX: R10.11 Right upper quadrant pain (principal)
CPT/HCPCS: 78227; A9537; J2805